=== PATIENT | female | born 1995 | race Caucasian/White ===

== ENCOUNTER 2016-11-24 11:08 | Emergency (ER) | payer OTHER ==
[2016-11-24] MEDS ORDERED: Sodium Chloride 0.9% 10 ML Syringe FLUSH PRN (11:16)
[2016-11-24 12:04] LABS: CHLORIDE,CL 109 mmol/L (101-111); SODIUM,NA 138 mmol/L (135-145)
--- NOTE | 2016-11-24 12:05 | EDM.PDOC ---
ED HPI GENERAL MEDICAL PROBLEM - General Chief Complaint: Abdominal Pain Stated Complaint: SHARP PAIN RIGHT SIDE 13 WEEKS PREG [id number] Time Seen by Provider: 11/24/16 11:40 Source of Information: Reports: Patient, RN, RN Notes Reviewed - History of Present Illness INITIAL COMMENTS - FREE TEXT/NARRATIVE: Pt presents to the ER with c/o RLQ pain. She states the pain began about 1/2 hour prior to arrival. She denies fever, chills, chest pain, sob, diarrhea, or constipation. She states she has chronic nausea and vomiting as she is approximately 11 weeks 6 days . She describes the pain as sharp, and that it has let up since it first began. Onset: Today, Sudden Location: Reports: Abdomen Quality: Reports: Sharp, Stabbing Severity: Moderate Improves with: Reports: None Worsens with: Reports: None Associated Symptoms: Reports: No Other Symptoms Right Lower Abdomen Pain Score (Numeric/FACES): 8 - Related Data Allergies Allergy/AdvReac Type Severity Reaction Status Date / Time No Known Allergies Allergy Verified 11/24/16 11:44 Home Meds: Home Meds Ondansetron [Zofran] 11/24/16 [History] ED ROS GENERAL - Review of Systems Review Of Systems: ROS reveals no pertinent complaints other than HPI. ED EXAM, GI/ABD - Physical Exam Exam: See Below Exam Limited By: No Limitations General Appearance: Alert, WD/WN, No Apparent Distress Ears: Normal External Exam, Hearing Grossly Normal Nose: Normal Inspection Throat/Mouth: Normal Inspection, Normal Voice, No Airway Compromise Head: Atraumatic, Normocephalic Neck: Normal Inspection, Supple, Non-Tender, Full Range of Motion Respiratory/Chest: No Respiratory Distress, Lungs Clear, Normal Breath Sounds, No Accessory Muscle Use, Chest Non-Tender Cardiovascular: Normal Peripheral Pulses, Regular Rate, Rhythm, No Edema, No Gallop, No JVD, No Murmur, No Rub GI/Abdominal Exam: Normal Bowel Sounds, Soft, Tender (RLQ, LLQ) (Female) Exam: Deferred Rectal (Female) Exam: Deferred Back Exam: Normal Inspection, Full Range of Motion Extremities: Normal Inspection, Normal Range of Motion, Non-Tender, No Pedal Edema, Normal Capillary Refill Neurological: Alert, Oriented, Normal Cognition, Normal Gait, No Motor/Sensory Deficits Psychiatric: Normal Affect, Normal Mood Skin Exam: Warm, Dry, Intact, Normal Color, No Rash Lymphatic: No Adenopathy Course - Vital Signs Last Recorded V/S: Last Vital Signs Temp 97 F 11/24/16 13:40 Pulse 77 11/24/16 13:40 Resp 16 11/24/16 13:40 BP 114/56 L 11/24/16 13:40 Pulse Ox 100 11/24/16 13:40 - Orders/Labs/Meds Orders: Active Orders 24 hr Category Date Time Status Peripheral IV Care [RC] . DIRECTED Care 11/24/16 11:16 Active Sodium Chloride 0.9% [Saline Flush] Med 11/24/16 11:16 Active 10 ml FLUSH ASDIRECTED PRN Peripheral IV Insertion Adult [OM.PC] Stat Oth 11/24/16 11:15 Ordered Medication Orders Sodium Chloride (Saline Flush) 10 ml FLUSH ASDIRECTED PRN PRN Reason: Keep Vein Open Labs: Laboratory Tests 11/24/16 11/24/16 11/24/16 Range/Units 11:30 11:30 11:30 WBC 8.9 (5.0-10.0) 10^3/uL RBC 4.61 (4.2-5.4) 10^6/uL Hgb 13.5 (12.0-16.0) g/dL Hct 39.2 (37.0-47.0) % MCV 85.0 (80-100) fL MCH 29.3 (27.0-34.0) pg MCHC 34.4 (33.0-35.0) g/dL Plt Count 285 (150-450) 10^3/uL Neut % (Auto) 68.1 (42.2-75.2) % Lymph % (Auto) 23.6 (20.5-50.1) % Atkinson % (Auto) 6.9 (2-8) % Eos % (Auto) 1.2 (1.0-3.0) % Baso % (Auto) 0.2 (0.0-1.0) % Sodium 138 (135-145) mmol/L Potassium 3.3 L (3.6-5.0) mmol/L Chloride 109 (101-111) mmol/L Carbon Dioxide 21.0 (21.0-31.0) mmol/L Anion Gap 11.3 BUN 6 L (7-18) mg/dL Creatinine 0.6 (0.6-1.3) mg/dL Est Cr Clr Drug Dosing TNP Estimated GFR (MDRD) > 60 BUN/Creatinine Ratio 10.00 Glucose 69 L (74-105) mg/dL Calcium 9.3 (8.4-10.2) mg/dl Total Bilirubin 0.3 (0.2-1.0) mg/dL AST 19 (10-42) IU/L ALT 11 (10-60) IU/L Alkaline Phosphatase 48 (42-121) IU/L Total Protein 6.7 (6.7-8.2) g/dl Albumin 3.6 (3.2-5.5) g/dl Globulin 3.1 Albumin/Globulin Ratio 1.16 Amylase 74 (28-100) U/L Lipase 27 (22-51) U/L HCG, Quant > 1371 H (0-25) mIU/ml Beta HCG, Quant 602488 mIU/ml Urine Color (YELLOW) Urine Appearance (CLEAR) Urine pH (5.0-9.0) Ur Specific Emerson (1.005-1.030) Urine Protein (NEGATIVE) Urine Glucose (UA) (NEGATIVE) Urine Ketones (NEGATIVE) Urine Occult Blood (NEGATIVE) Urine Nitrite (NEGATIVE) Urine Bilirubin (NEGATIVE) Urine Urobilinogen (0.2-1.0) mg/dL Ur Leukocyte Esterase (NEGATIVE) Urine RBC /HPF Urine WBC (0-5/HPF) /HPF Ur Epithelial Cells /HPF Urine Bacteria (0-FEW/HPF) /HPF Urine Opiates Screen (NEGATIVE) Ur Oxycodone Screen (NEGATIVE) Urine Methadone Screen (NEGATIVE) Ur Barbiturates Screen (NEGATIVE) U Tricyclic Antidepress (NEGATIVE) Ur Phencyclidine Scrn (NEGATIVE) Ur Amphetamine Screen (NEGATIVE) U Methamphetamines Scrn (NEGATIVE) Urine MDMA Screen (NEGATIVE) U Benzodiazepines Scrn (NEGATIVE) Urine Cocaine Screen (NEGATIVE) U Marijuana (THC) Screen (NEGATIVE) 11/24/16 11/24/16 Range/Units 11:30 11:30 WBC (5.0-10.0) 10^3/uL RBC (4.2-5.4) 10^6/uL Hgb (12.0-16.0) g/dL Hct (37.0-47.0) % MCV (80-100) fL MCH (27.0-34.0) pg MCHC (33.0-35.0) g/dL Plt Count (150-450) 10^3/uL Neut % (Auto) (42.2-75.2) % Lymph % (Auto) (20.5-50.1) % Atkinson % (Auto) (2-8) % Eos % (Auto) (1.0-3.0) % Baso % (Auto) (0.0-1.0) % Sodium (135-145) mmol/L Potassium (3.6-5.0) mmol/L Chloride (101-111) mmol/L Carbon Dioxide (21.0-31.0) mmol/L Anion Gap BUN (7-18) mg/dL Creatinine (0.6-1.3) mg/dL Est Cr Clr Drug Dosing Estimated GFR (MDRD) BUN/Creatinine Ratio Glucose (74-105) mg/dL Calcium (8.4-10.2) mg/dl Total Bilirubin (0.2-1.0) mg/dL AST (10-42) IU/L ALT (10-60) IU/L Alkaline Phosphatase (42-121) IU/L Total Protein (6.7-8.2) g/dl Albumin (3.2-5.5) g/dl Globulin Albumin/Globulin Ratio Amylase (28-100) U/L Lipase (22-51) U/L HCG, Quant (0-25) mIU/ml Beta HCG, Quant mIU/ml Urine Color Yellow (YELLOW) Urine Appearance Clear (CLEAR) Urine pH 5.5 (5.0-9.0) Ur Specific Emerson 1.015 (1.005-1.030) Urine Protein Negative (NEGATIVE) Urine Glucose (UA) Negative (NEGATIVE) Urine Ketones 40 H (NEGATIVE) Urine Occult Blood Small H (NEGATIVE) Urine Nitrite Negative (NEGATIVE) Urine Bilirubin Negative (NEGATIVE) Urine Urobilinogen 0.2 (0.2-1.0) mg/dL Ur Leukocyte Esterase Small H (NEGATIVE) Urine RBC 0-5 /HPF Urine WBC 0-5 (0-5/HPF) /HPF Ur Epithelial Cells Moderate H /HPF Urine Bacteria Few (0-FEW/HPF) /HPF Urine Opiates Screen Negative (NEGATIVE) Ur Oxycodone Screen Negative (NEGATIVE) Urine Methadone Screen Negative (NEGATIVE) Ur Barbiturates Screen Negative (NEGATIVE) U Tricyclic Antidepress Negative (NEGATIVE) Ur Phencyclidine Scrn Negative (NEGATIVE) Ur Amphetamine Screen Negative (NEGATIVE) U Methamphetamines Scrn Negative (NEGATIVE) Urine MDMA Screen Negative (NEGATIVE) U Benzodiazepines Scrn Negative (NEGATIVE) Urine Cocaine Screen Negative (NEGATIVE) U Marijuana (THC) Screen Negative (NEGATIVE) Meds: Medications Generic Name Dose Route Start Last Admin Trade Name Freq PRN Reason Stop Dose Admin Sodium Chloride 10 ml 11/24/16 11:16 Saline Flush FLUSH ASDIRECTED PRN Keep Vein Open - Radiology Interpretation Free Text/Narrative:: Ultrasound: Living intrauterine fetus, no acute findings See rad report - Re-Assessments/Exams Free Text/Narrative Re-Assessment/Exam: 11/24/16 12:05 Called Radiology regarding US at 1200. They state they will call back. 11/24/16 13:36 1208 Radiology called back. US will be done in about 30 minutes. Departure - Departure Time of Disposition: 15:04 Disposition: Home, Self-Care 01 Condition: Good Clinical Impression: Round ligament pain - Discharge Information Instructions: Abdominal Pain, Adult, [id number], Round Ligament Pain Forms: ED Department Discharge Additional Instructions: Follow up with Dr. Olivo as needed. - My Orders Last 24 Hours: My Active Orders 11/24/16 11:15 Peripheral IV Insertion Adult [OM.PC] Stat 11/24/16 11:16 Peripheral IV Care [RC] . DIRECTED Sodium Chloride 0.9% [Saline Flush] 10 ml FLUSH ASDIRECTED PRN - Assessment/Plan Last 24 Hours: My Active Orders 11/24/16 11:15 Peripheral IV Insertion Adult [OM.PC] Stat 11/24/16 11:16 Peripheral IV Care [RC] . DIRECTED Sodium Chloride 0.9% [Saline Flush] 10 ml FLUSH ASDIRECTED PRN
[2016-11-24] MEDS ORDERED: cefTRIAXone 1 GM in Sodium Chloride 0.9% 50 ML IV ONE (14:02)
== END 2016-11-24 15:22 | disposition home or self-care (01) ==
LOC: DL.ED 11:08
DX: O99.89 Other specified diseases and conditions complicating pregnancy, childbirth and the puerperium (principal); R10.2 Pelvic and perineal pain; Z3A.11 11 weeks gestation of pregnancy
CPT/HCPCS: 36415; 76815; 76817; 80053; 80305; 81001; 82150; 83690; 84702; 85025; 99284

== ENCOUNTER 2017-06-08 23:08 | Inpatient (IN) | payer OTHER ==
[2017-06-08] MEDS: Lactated Ringers 1,000 ML IV SCH (23:55)
[2017-06-09] MEDS ORDERED: fentaNYL 100 MCG/2 ML SDV IVPUSH ONE
[2017-06-09] MEDS ORDERED: Sodium Chloride 0.9% 10 ML Syringe FLUSH PRN ×2 (00:02→08:52)
[2017-06-09] MEDS ORDERED: Lactated Ringers 500 ML IV ONE (00:02)
[2017-06-09] MEDS ORDERED: Misoprostol 400 MCG (4 X 100 MCG TAB) RECTAL PRN (00:02)
[2017-06-09] MEDS ORDERED: Tranexamic Acid 1,000 MG in Sodium Chloride 0.9% 100 ML IV PRN (00:02)
[2017-06-09] MEDS ORDERED: Acetaminophen 325 MG Tab PO PRN (00:02)
[2017-06-09] MEDS ORDERED: Carboprost Tromethamine 250 MCG/1 ML Amp IM PRN (00:02)
[2017-06-09] MEDS ORDERED: Lidocaine 1% 30 ML SDV INJECT PRN (00:02)
[2017-06-09] MEDS ORDERED: Methylergonovine 0.2 MG/1 ML Amp IM PRN (00:02)
[2017-06-09] MEDS ORDERED: Oxytocin/Normal Saline 30 UNIT/500 ML BAG IV SCH (00:15)
--- NOTE | 2017-06-09 00:23 | PCM.LDHP ---
<Cori Lucas A - Last Filed: 06/09/17 00:18> L&D History of Present Illness - General Date of Service: 06/09/17 Admit Problem/Dx: Patient Status Order with Admit Dx/Problem 06/09/17 00:02 Patient Status [ADT] Routine Admission Diagnosis/Problem Admission Diagnosis/Problem Normal labor 06/09/17 00:18 Normal Labor Source of Information: Patient History Limitations: Reports: No Limitations - History of Present Illness Introduction:: Patient presents today for frequent painful contractions. They are occurring every 2-3 minutes and are very painful. She has had bloody show. NO loss of fluids or feeling like her water broke. No complications this . She is a at 40 weeks. NO headaches, vision changes, leg swelling. Baby is moving well. - Related Data Allergies/Adverse Reactions: Allergies Allergy/AdvReac Type Severity Reaction Status Date / Time No Known Allergies Allergy Verified 06/09/17 01:45 Home Medications: Home Meds Ondansetron [Zofran] 4 mg PO Q6H PRN 11/24/16 [History] Pnv No.122/Iron/Folic Acid [ Multi Tablet] 1 tab PO DAILY 03/03/17 [ History] Past Medical History HEENT History: Reports: None Cardiovascular History: Reports: None Respiratory History: Reports: None Gastrointestinal History: Reports: None Genitourinary History: Reports: None [employer] History: Reports: Polycystic Ovaries, : 1 Para: 0 Musculoskeletal History: Reports: None Neurological History: Reports: None Psychiatric History: Reports: Anxiety Endocrine/Metabolic History: Reports: None Hematologic History: Reports: Anemia Immunologic History: Reports: None Oncologic (Cancer) History: Reports: None Dermatologic History: Reports: Urticaria, Other (See Below) Other Dermatologic History: states breaks out in hives per uticaria if takes steroids PO - Infectious Disease History Infectious Disease History: Reports: Other (See Below) Other Infectious Disease History: STD - Past Surgical History Head Surgeries/Procedures: Reports: None HEENT Surgical History: Reports: Other (See Below) Other HEENT Surgeries/Procedures: wisdom teeth Female Surgical History: Reports: None Social & Family History - Family History Family Medical History: Noncontributory - Tobacco Use Smoking Status *Q: Never Smoker - Caffeine Use Caffeine Use: Reports: Soda - Recreational Drug Use Recreational Drug Use: No H&P Review of Systems - Review of Systems: Review Of Systems: See Below General: Reports: No Symptoms HEENT: Reports: No Symptoms Pulmonary: Reports: No Symptoms Cardiovascular: Reports: No Symptoms Gastrointestinal: Reports: Abdominal Pain Genitourinary: Reports: Other (bloody show) Musculoskeletal: Reports: No Symptoms Skin: Reports: No Symptoms Psychiatric: Reports: No Symptoms Neurological: Reports: No Symptoms Hematologic/Lymphatic: Reports: No Symptoms Immunologic: Reports: No Symptoms L&D Exam - Exam Exam: See Below - OB Specific Contraction Frequency (min): 2-3 minutes Contraction Intensity: Moderate Movement: Active Heart Tones: Present Heart Tones per Min: 145 (Accelerations present, variable and early decels present) Heart Rate (FHR) Variability: Moderate (6-25 bmp) Presentation: Vertex - Wallis Score Wallis Score Dilation: 3-4 cm - Exam General: Alert, Oriented, Severe Distress HEENT: Conjunctiva Clear, Hearing Intact, Mucosa Moist & [place], Nares Patent Lungs: Clear to Auscultation, Normal Respiratory Effort Cardiovascular: Regular Rate, Regular Rhythm GI/Abdominal Exam: Normal Bowel Sounds, Soft, Other () Genitourinary: Cervical dilitation (/-1) Extremities: Normal Inspection, Normal Range of Motion, Non-Tender, No Pedal Edema, Normal Capillary Refill Skin: Warm, Dry, Intact Psychiatric: Alert, Normal Affect, Normal Mood - Problem List (1) Normal labor SNOMED Code(s): 88945357 ICD Code: O80 - ENCOUNTER FOR FULL-TERM UNCOMPLICATED DELIVERY; Z37.9 - OUTCOME OF DELIVERY, UNSPECIFIED Status: Acute Current Visit: Yes Problem List Initiated/Reviewed/Updated: Yes Orders Last 24hrs: Active Orders 24 hr Category Date Time Status Patient Status [ADT] Routine ADT 06/09/17 00:02 Active Communication Order [RC] ASDIRECTED Care 06/09/17 00:02 Active Heart Tones [RC] PER UNIT ROUTINE Care 06/09/17 00:02 Active Notify Provider Vital Signs OB [RC] ASDIRECTED Care 06/09/17 00:02 Active Notify Provider [RC] PRN Care 06/09/17 00:02 Active Pump Management, Intrathecal [RC] ASDIRECTED Care 06/09/17 00:02 Active Up ad Ira [RC] ASDIRECTED Care 06/09/17 00:02 Active Vital Signs [RC] PER UNIT ROUTINE Care 06/09/17 00:02 Active Nothing Per Oral Diet [DIET] Diet 06/09/17 Breakfast Active CBC W/O DIFF,HEMOGRAM [HEME] Routine Lab 06/09/17 00:02 Ordered Acetaminophen [Tylenol] Med 06/09/17 00:02 Ordered 650 mg PO Q4H PRN Carboprost Tromethamine [Hemabate DS] Med 06/09/17 00:02 Ordered 250 mcg IM ASDIRECTED PRN Lactated Ringers [Ringers, Lactated] 1,000 ml Med 06/09/17 00:15 Ordered IV ASDIRECTED Lactated Ringers [Ringers, Lactated] 500 ml Med 06/09/17 00:02 Ordered IV .BOLUS Lidocaine 1% [Xylocaine-MPF 1%] Med 06/09/17 00:02 Ordered 10 ml INJECT ASDIRECTED PRN Methylergonovine [Methergine] Med 06/09/17 00:02 Ordered 0.2 mg IM ASDIRECTED PRN Misoprostol [Cytotec] Med 06/09/17 00:02 Ordered 800 mcg RECTAL ASDIRECTED PRN Ondansetron [Zofran] Med 06/09/17 00:02 Ordered 4 mg IV Q4H PRN Oxytocin/Normal Saline [Pitocin in NS 30 UNIT/500 ML] Med 06/09/17 00:15 Ordered 30 unit in 500 ml IV TITRATE Sodium Chloride 0.9% [Saline Flush] Med 06/09/17 00:02 Ordered 10 ml FLUSH ASDIRECTED PRN Tranexamic Acid [Cyklokapron] 1,000 mg Med 06/09/17 00:02 Ordered Sodium Chloride 0.9% [Normal Saline] 100 ml IV ONETIME Saline Lock Insert [OM.PC] Routine Oth 06/09/17 00:02 Ordered Resuscitation Status Routine Resus Stat 06/09/17 00:02 Ordered Medication Orders Acetaminophen (Tylenol) 650 mg PO Q4H PRN PRN Reason: Pain (Mild 1-3) and fever Carboprost Tromethamine (Hemabate Ds) 250 mcg IM ASDIRECTED PRN PRN Reason: HEMORRHAGE Lactated Ringer's (Ringers, Lactated) 500 mls @ 125 mls/hr IV .BOLUS ONE Stop: 06/09/17 04:01 Lactated Ringer's (Ringers, Lactated) 1,000 mls @ 125 mls/hr IV ASDIRECTED MAURISIO Oxytocin/Sodium Chloride (Pitocin In Ns 30 Unit/500 Ml) 30 unit in 500 mls @ 2 mls/hr IV TITRATE MAURISIO; Protocol Tranexamic Acid 1,000 mg/ (Sodium Chloride) 110 mls @ 660 mls/hr IV ONETIME PRN PRN Reason: Bleeding Lidocaine HCl (Xylocaine-Mpf 1%) 10 ml INJECT ASDIRECTED PRN PRN Reason: Perineal Repair Methylergonovine Maleate (Methergine) 0.2 mg IM ASDIRECTED PRN PRN Reason: Hemorrhage Misoprostol (Cytotec) 800 mcg RECTAL ASDIRECTED PRN PRN Reason: Hemorrhage Ondansetron HCl (Zofran) 4 mg IV Q4H PRN PRN Reason: Nausea/Vomiting Sodium Chloride (Saline Flush) 10 ml FLUSH ASDIRECTED PRN PRN Reason: Keep Vein Open Normal Labor: Admit to OB floor Continuous TOCO and EFM Routine intrapartum orders and labs Intrathecal for pain control AROM when able GBS negative Expectant management for Cori Lucas MD PGYIII <Margo Olivo - Last Filed: 06/09/17 16:27> L&D History of Present Illness - General Admit Problem/Dx: Patient Status Order with Admit Dx/Problem 06/09/17 00:02 Patient Status [ADT] Routine Admission Diagnosis/Problem Admission Diagnosis/Problem Normal labor L&D Exam - Vital Signs Vital Signs: Last Vital Signs Temp 36.7 C 06/09/17 08:40 Pulse 90 06/09/17 10:00 Resp 18 06/09/17 10:00 BP 120/54 L 06/09/17 10:00 Pulse Ox 98 06/09/17 05:20 - Patient Data Lab Results Last 24 hrs: Laboratory Results - last 24 hr 06/09/17 Range/Units 00:20 WBC 16.3 H (5.0-10.0) 10^3/uL RBC 3.65 L (4.2-5.4) 10^6/uL Hgb 10.9 L (12.0-16.0) g/dL Hct 32.4 L (37.0-47.0) % MCV 88.8 (80-100) fL MCH 29.9 (27.0-34.0) pg MCHC 33.6 (33.0-35.0) g/dL Plt Count 280 (150-450) 10^3/uL Result Diagrams: 06/09/17 00:20 Orders Last 24hrs: Active Orders 24 hr Category Date Time Status Patient Status [ADT] Routine ADT 06/09/17 00:02 Active Notify Provider Vital Signs OB [RC] ASDIRECTED Care 06/09/17 00:02 Active Up ad Ira [RC] ASDIRECTED Care 06/09/17 00:02 Active Vital Signs [RC] 08,20 Care 06/09/17 08:52 Active Regular Diet [DIET] Diet 06/09/17 Lunch Active CBC W/O DIFF,HEMOGRAM [HEME] Routine Lab 06/10/17 08:52 Ordered Acetaminophen [Tylenol] Med 06/09/17 00:02 Active 650 mg PO Q4H PRN Benzocaine/Menthol [Dermoplast Pain Relief [place]] Med 06/09/17 08:52 Active See Dose Instructions TOP Q4H PRN Carboprost Tromethamine [Hemabate DS] Med 06/09/17 00:02 Active 250 mcg IM ASDIRECTED PRN Docusate Sodium [Colace] Med 06/09/17 08:52 Active 100 mg PO BID PRN Ibuprofen [Motrin] Med 06/09/17 08:52 Active 800 mg PO Q8H PRN Methylergonovine [Methergine] Med 06/09/17 00:02 Active 0.2 mg IM ASDIRECTED PRN Misoprostol [Cytotec] Med 06/09/17 00:02 Active 800 mcg RECTAL ASDIRECTED PRN Oxytocin [Pitocin] Med 06/09/17 08:52 Active 10 unit IM ONETIME PRN Oxytocin/Normal Saline [Pitocin in NS 30 UNIT/500 ML] Med 06/09/17 00:15 Active 30 unit in 500 ml IV TITRATE Vit with Ca/FA/Iron [ Plus Iron] Med 06/09/17 09:00 Active 1 each PO DAILY Simethicone Med 06/09/17 08:52 Active 80 mg PO Q4H PRN Sodium Chloride 0.9% [Saline Flush] Med 06/09/17 00:02 Active 10 ml FLUSH ASDIRECTED PRN Sodium Chloride 0.9% [Saline Flush] Med 06/09/17 08:52 Active 10 ml FLUSH ASDIRECTED PRN Tranexamic Acid [Cyklokapron] 1,000 mg Med 06/09/17 00:02 Active Sodium Chloride 0.9% [Normal Saline] 100 ml IV ONETIME hydrOXYzine HCl [Atarax] Med 06/09/17 08:54 Active 25 mg PO Q8H PRN Assess Lochia [WOMSER] Per Unit Routine Ot 06/09/17 08:52 Ordered Assess Uterine Involution [WOMSER] Per Unit Routine Ot 06/09/17 08:52 Ordered Breast Pump [WOMSER] Per Unit Routine Ot 06/09/17 08:52 Ordered Ice Therapy [OM.PC] Per Unit Routine Ot 06/09/17 08:52 Ordered Perineal Care [OM.PC] Per Unit Routine Oth 06/09/17 08:52 Ordered Saline Lock Insert [OM.PC] Routine Ot 06/09/17 00:02 Ordered Saline Lock Insert [OM.PC] Urgent Oth 06/09/17 08:52 Ordered Sitz Bath [OM.PC] Per Unit Routine Ot 06/09/17 08:52 Ordered Resuscitation Status Routine Resus Stat 06/09/17 00:02 Ordered Medication Orders Acetaminophen (Tylenol) 650 mg PO Q4H PRN PRN Reason: Pain (Mild 1-3) and fever Benzocaine/Menthol (Dermoplast Pain Relief [place]) 0 gm TOP Q4H PRN PRN Reason: Perineal comfort measures Last Admin: 06/09/17 10:14 Dose: 1 spray Carboprost Tromethamine (Hemabate Ds) 250 mcg IM ASDIRECTED PRN PRN Reason: HEMORRHAGE Docusate Sodium (Colace) 100 mg PO BID PRN PRN Reason: Constipation Last Admin: 06/09/17 10:14 Dose: 100 mg Hydroxyzine HCl (Atarax) 25 mg PO Q8H PRN PRN Reason: Anxiety Last Admin: 06/09/17 10:14 Dose: 25 mg Oxytocin/Sodium Chloride (Pitocin In Ns 30 Unit/500 Ml) 30 unit in 500 mls @ 2 mls/hr IV TITRATE MAURISIO; Protocol Last Titration: 06/09/17 11:15 Dose: 0 munits/min, 0 mls/hr Titration: 06/09/17 10:05 Dose: 50 munits/min, 50 mls/hr Titration: 06/09/17 09:30 Dose: 125 munits/min, 125 mls/hr Titration: 06/09/17 08:50 Dose: 250 munits/min, 250 mls/hr Titration: 06/09/17 08:43 Dose: 500 munits/min, 500 mls/hr Titration: 06/09/17 08:34 Dose: 999 munits/min, 999 mls/hr Admin: 06/09/17 08:30 Dose: 500 munits/min, 500 mls/hr Tranexamic Acid 1,000 mg/ (Sodium Chloride) 110 mls @ 660 mls/hr IV ONETIME PRN PRN Reason: Bleeding Ibuprofen (Motrin) 800 mg PO Q8H PRN PRN Reason: Mild Pain or Fever Last Admin: 06/09/17 10:13 Dose: 800 mg Methylergonovine Maleate (Methergine) 0.2 mg IM ASDIRECTED PRN PRN Reason: Hemorrhage Misoprostol (Cytotec) 800 mcg RECTAL ASDIRECTED PRN PRN Reason: Hemorrhage Oxytocin (Pitocin) 10 unit IM ONETIME PRN PRN Reason: Bleeding Prenat Multivit/Ramer/Iron/Folic Ac ( Plus Iron) 1 each PO DAILY [facility] Last Admin: 06/09/17 15:21 Dose: Simethicone (Simethicone) 80 mg PO Q4H PRN PRN Reason: Gas Sodium Chloride (Saline Flush) 10 ml FLUSH ASDIRECTED PRN PRN Reason: Keep Vein Open Sodium Chloride (Saline Flush) 10 ml FLUSH ASDIRECTED PRN PRN Reason: Keep Vein Open Assessment/Plan Comment:: Agree with resident assessment and plan. Margo Olivo MD
[2017-06-09] MEDS: Lactated Ringers 1,000 ML IV SCH ×4 (00:30→05:00)
[2017-06-09] MEDS ORDERED: fentaNYL 100 MCG/2 ML SDV ONE ×2 (00:38→04:43)
[2017-06-09] MEDS ORDERED: Bupivacaine 0.75%/D5W 2 ML Amp ONE ×2 (00:38→04:43)
[2017-06-09] MEDS ORDERED: EPINEPHrine 1 MG/ML SDV ONE ×2 (00:38→04:43)
[2017-06-09] MEDS: ePHEDrine 50 MG/ML SDV ONE ×4 (01:00→05:04)
--- NOTE | 2017-06-09 01:03 | PCM.SN ---
- Free Text/Narrative Note: Intrathecal. Sitting position sterile prep and drape. 1 % lidocaine w bicarb for skinwheal to L3 L4 interspace. Introducer, 24 ga pencan x 1. Poc CSF, neg heme, neg parasthesia. 0.1 ml 1:1000 pf epi, 0.2 ml pf ns, 20 mcg pf sufenta, 30 mcg pf fentanyl and 6 mg of 0.75% pf bupivacaine injected after CSF aspiration. Pt to L lateral position. Procedure time 0035 to 0110
[2017-06-09] MEDS: Ondansetron 4 MG/2 ML SDV IV PRN ×2 (01:18→04:59)
--- NOTE | 2017-06-09 01:23 | PCM.PN ---
- General Info Date of Service: 06/09/17 Admission Dx/Problem (Free Text): Patient Status Order with Admit Dx/Problem 06/09/17 00:02 Patient Status [ADT] Routine Admission Diagnosis/Problem Admission Diagnosis/Problem Normal labor 06/09/17 00:18 Normal Labor Subjective Update: Patient is more comfortable with intrathecal. Is nauseous and vomiting - Patient Data Lab Results Last 24 Hours: Laboratory Results - last 24 hr 06/09/17 Range/Units 00:20 WBC 16.3 H (5.0-10.0) 10^3/uL RBC 3.65 L (4.2-5.4) 10^6/uL Hgb 10.9 L (12.0-16.0) g/dL Hct 32.4 L (37.0-47.0) % MCV 88.8 (80-100) fL MCH 29.9 (27.0-34.0) pg MCHC 33.6 (33.0-35.0) g/dL Plt Count 280 (150-450) 10^3/uL Med Orders - Current: Current Medications Acetaminophen (Tylenol) 650 mg PO Q4H PRN PRN Reason: Pain (Mild 1-3) and fever Carboprost Tromethamine (Hemabate Ds) 250 mcg IM ASDIRECTED PRN PRN Reason: HEMORRHAGE Lactated Ringer's (Ringers, Lactated) 500 mls @ 125 mls/hr IV .BOLUS ONE Stop: 06/09/17 04:01 Lactated Ringer's (Ringers, Lactated) 1,000 mls @ 125 mls/hr IV ASDIRECTED MAURISIO Last Admin: 06/08/17 23:55 Dose: 125 mls/hr Oxytocin/Sodium Chloride (Pitocin In Ns 30 Unit/500 Ml) 30 unit in 500 mls @ 2 mls/hr IV TITRATE MAURISIO; Protocol Tranexamic Acid 1,000 mg/ (Sodium Chloride) 110 mls @ 660 mls/hr IV ONETIME PRN PRN Reason: Bleeding Lidocaine HCl (Xylocaine-Mpf 1%) 10 ml INJECT ASDIRECTED PRN PRN Reason: Perineal Repair Methylergonovine Maleate (Methergine) 0.2 mg IM ASDIRECTED PRN PRN Reason: Hemorrhage Misoprostol (Cytotec) 800 mcg RECTAL ASDIRECTED PRN PRN Reason: Hemorrhage Ondansetron HCl (Zofran) 4 mg IV Q4H PRN PRN Reason: Nausea/Vomiting Sodium Chloride (Saline Flush) 10 ml FLUSH ASDIRECTED PRN PRN Reason: Keep Vein Open Discontinued Medications Bupivacaine HCl/Dextrose (Marcaine 0.75% Spinal) Confirm Administered Dose 2 ml .ROUTE .STK-MED ONE Stop: 06/09/17 00:39 Ephedrine Sulfate (Ephedrine Sulfate) Confirm Administered Dose 50 mg .ROUTE .STK-MED ONE Stop: 06/09/17 00:57 Last Admin: 06/09/17 01:06 Dose: 5 mg Epinephrine HCl (Adrenalin) Confirm Administered Dose 1 mg .ROUTE .STK-MED ONE Stop: 06/09/17 00:39 Fentanyl (Sublimaze) 25 mcg IVPUSH ONETIME ONE Stop: 06/09/17 00:01 Fentanyl (Sublimaze) Confirm Administered Dose 100 mcg .ROUTE .STK-MED ONE Stop: 06/09/17 00:39 Sodium Bicarbonate (Sodium Bicarbonate 4.2%) Confirm Administered Dose 5 meq .ROUTE .STK-MED ONE Stop: 06/09/17 00:40 Sufentanil Citrate (Sufenta) Confirm Administered Dose 50 mcg .ROUTE .STK-MED ONE Stop: 06/09/17 00:39 - Exam (Female) Exam: Cervical Dilatation (5/100/-1; AROMed for moderate clear fluid ) Physical Findings Comments:: FHT: 130, moderate variability, accelerations present, variable and early decels TOCO: COntractions ever 2-3 minutes - Problem List & Annotations (1) Normal labor SNOMED Code(s): 41155439 Code(s): O80 - ENCOUNTER FOR FULL-TERM UNCOMPLICATED DELIVERY; Z37.9 - OUTCOME OF DELIVERY, UNSPECIFIED Status: Acute Current Visit: Yes - Problem List Review Problem List Initiated/Reviewed/Updated: Yes - My Orders Last 24 Hours: My Active Orders 06/09/17 00:02 Patient Status [ADT] Routine Communication Order [RC] ASDIRECTED Heart Tones [RC] PER UNIT ROUTINE Notify Provider Vital Signs OB [RC] ASDIRECTED Notify Provider [RC] PRN Pump Management, Intrathecal [RC] ASDIRECTED Up ad Ira [RC] ASDIRECTED Vital Signs [RC] PER UNIT ROUTINE Acetaminophen [Tylenol] 650 mg PO Q4H PRN Carboprost Tromethamine [Hemabate DS] 250 mcg IM ASDIRECTED PRN Lactated Ringers [Ringers, Lactated] 500 ml IV .BOLUS Lidocaine 1% [Xylocaine-MPF 1%] 10 ml INJECT ASDIRECTED PRN Methylergonovine [Methergine] 0.2 mg IM ASDIRECTED PRN Misoprostol [Cytotec] 800 mcg RECTAL ASDIRECTED PRN Ondansetron [Zofran] 4 mg IV Q4H PRN Sodium Chloride 0.9% [Saline Flush] 10 ml FLUSH ASDIRECTED PRN Tranexamic Acid [Cyklokapron] 1,000 mg Sodium Chloride 0.9% [Normal Saline] 100 ml IV ONETIME Saline Lock Insert [OM.PC] Routine Resuscitation Status Routine 06/09/17 00:15 Lactated Ringers [Ringers, Lactated] 1,000 ml IV ASDIRECTED Oxytocin/Normal Saline [Pitocin in NS 30 UNIT/500 ML] 30 unit in 500 ml IV TITRATE 06/09/17 Breakfast Nothing Per Oral Diet [DIET] - Assessment Assessment:: Normal Labor - Plan Plan:: Zofran for nausea Expectant management for
--- NOTE | 2017-06-09 05:05 | PCM.SN ---
- Free Text/Narrative Note: Intrathecal. Sitting position sterile prep and drape. 1 % lidocaine w bicarb for skinwheal to L3 L4 interspace. Introducer, 24 ga pencan x 1. Pos CSF, neg heme, neg parasthesia. 0.1 ml 1:1000 pf epi, 0.2 ml pf ns, 20 mcg pf sufenta, 30 mcg pf fentanyl and 6 mg of 0.75% pf bupivacaine injected after CSF aspiration. Pt to L lateral position. Procedure time 0435 to 0508
--- NOTE | 2017-06-09 07:29 | PCM.PN ---
- General Info Date of Service: 06/09/17 Admission Dx/Problem (Free Text): Patient Status Order with Admit Dx/Problem 06/09/17 00:02 Patient Status [ADT] Routine Admission Diagnosis/Problem Admission Diagnosis/Problem Normal labor 06/09/17 00:18 Normal Labor Subjective Update: Patient more comfortable with intrathecal. She continues to vomit. - Patient Data Vitals - Most Recent: Last Vital Signs Temp 36.2 C 06/09/17 06:25 Pulse 71 06/09/17 06:55 Resp 18 06/09/17 06:55 BP 87/39 L 06/09/17 06:55 Pulse Ox 98 06/09/17 05:20 Weight - Most Recent: 95.254 kg I&O - Last 24 Hours: Intake & Output 06/08/17 06/09/17 06/09/17 22:59 06:59 14:59 Intake Total 4000 Output Total 200 Balance 3800 Lab Results Last 24 Hours: Laboratory Results - last 24 hr 06/09/17 Range/Units 00:20 WBC 16.3 H (5.0-10.0) 10^3/uL RBC 3.65 L (4.2-5.4) 10^6/uL Hgb 10.9 L (12.0-16.0) g/dL Hct 32.4 L (37.0-47.0) % MCV 88.8 (80-100) fL MCH 29.9 (27.0-34.0) pg MCHC 33.6 (33.0-35.0) g/dL Plt Count 280 (150-450) 10^3/uL Med Orders - Current: Current Medications Acetaminophen (Tylenol) 650 mg PO Q4H PRN PRN Reason: Pain (Mild 1-3) and fever Carboprost Tromethamine (Hemabate Ds) 250 mcg IM ASDIRECTED PRN PRN Reason: HEMORRHAGE Lactated Ringer's (Ringers, Lactated) 1,000 mls @ 125 mls/hr IV ASDIRECTED MAURISIO Last Admin: 06/09/17 05:00 Dose: 125 mls/hr Oxytocin/Sodium Chloride (Pitocin In Ns 30 Unit/500 Ml) 30 unit in 500 mls @ 2 mls/hr IV TITRATE MAURISIO; Protocol Tranexamic Acid 1,000 mg/ (Sodium Chloride) 110 mls @ 660 mls/hr IV ONETIME PRN PRN Reason: Bleeding Lidocaine HCl (Xylocaine-Mpf 1%) 10 ml INJECT ASDIRECTED PRN PRN Reason: Perineal Repair Methylergonovine Maleate (Methergine) 0.2 mg IM ASDIRECTED PRN PRN Reason: Hemorrhage Misoprostol (Cytotec) 800 mcg RECTAL ASDIRECTED PRN PRN Reason: Hemorrhage Ondansetron HCl (Zofran) 4 mg IV Q4H PRN PRN Reason: Nausea/Vomiting Last Admin: 06/09/17 04:59 Dose: 4 mg Sodium Chloride (Saline Flush) 10 ml FLUSH ASDIRECTED PRN PRN Reason: Keep Vein Open Discontinued Medications Bupivacaine HCl/Dextrose (Marcaine 0.75% Spinal) Confirm Administered Dose 2 ml .ROUTE .STK-MED ONE Stop: 06/09/17 00:39 Last Admin: 06/09/17 01:58 Dose: Not Given Bupivacaine HCl/Dextrose (Marcaine 0.75% Spinal) Confirm Administered Dose 2 ml .ROUTE .STK-MED ONE Stop: 06/09/17 04:44 Last Admin: 06/09/17 05:34 Dose: Not Given Ephedrine Sulfate (Ephedrine Sulfate) Confirm Administered Dose 50 mg .ROUTE .STK-MED ONE Stop: 06/09/17 00:57 Last Admin: 06/09/17 05:04 Dose: 10 mg Epinephrine HCl (Adrenalin) Confirm Administered Dose 1 mg .ROUTE .STK-MED ONE Stop: 06/09/17 00:39 Last Admin: 06/09/17 01:58 Dose: Not Given Epinephrine HCl (Adrenalin) Confirm Administered Dose 1 mg .ROUTE .STK-MED ONE Stop: 06/09/17 04:44 Last Admin: 06/09/17 05:34 Dose: Not Given Fentanyl (Sublimaze) 25 mcg IVPUSH ONETIME ONE Stop: 06/09/17 00:01 Last Admin: 06/09/17 04:38 Dose: Not Given Fentanyl (Sublimaze) Confirm Administered Dose 100 mcg .ROUTE .STK-MED ONE Stop: 06/09/17 00:39 Last Admin: 06/09/17 01:58 Dose: Not Given Fentanyl (Sublimaze) Confirm Administered Dose 100 mcg .ROUTE .STK-MED ONE Stop: 06/09/17 04:44 Last Admin: 06/09/17 05:34 Dose: Not Given Lactated Ringer's (Ringers, Lactated) 500 mls @ 125 mls/hr IV .BOLUS ONE Stop: 06/09/17 04:01 Last Admin: 06/09/17 04:39 Dose: Not Given Sodium Bicarbonate (Sodium Bicarbonate 4.2%) Confirm Administered Dose 5 meq .ROUTE .STK-MED ONE Stop: 06/09/17 00:40 Last Admin: 06/09/17 01:58 Dose: Not Given Sodium Bicarbonate (Sodium Bicarbonate 4.2%) Confirm Administered Dose 5 meq .ROUTE .STK-MED ONE Stop: 06/09/17 04:45 Last Admin: 06/09/17 05:35 Dose: Not Given Sufentanil Citrate (Sufenta) Confirm Administered Dose 50 mcg .ROUTE .STK-MED ONE Stop: 06/09/17 00:39 Last Admin: 06/09/17 01:58 Dose: Not Given Sufentanil Citrate (Sufenta) Confirm Administered Dose 50 mcg .ROUTE .STK-MED ONE Stop: 06/09/17 04:45 Last Admin: 06/09/17 05:35 Dose: Not Given - Exam (Female) Exam: Cervical Dilatation (complete, +1) Physical Findings Comments:: FHT: 130, moderate variability, accelerations present, no decels TOCO:Contractions every 2-3 minutes - Problem List & Annotations (1) Normal labor SNOMED Code(s): 48162418 Code(s): O80 - ENCOUNTER FOR FULL-TERM UNCOMPLICATED DELIVERY; Z37.9 - OUTCOME OF DELIVERY, UNSPECIFIED Status: Acute Current Visit: Yes - Problem List Review Problem List Initiated/Reviewed/Updated: Yes - My Orders Last 24 Hours: My Active Orders 06/09/17 00:02 Patient Status [ADT] Routine Communication Order [RC] ASDIRECTED Notify Provider Vital Signs OB [RC] ASDIRECTED Notify Provider [RC] PRN Up ad Ira [RC] ASDIRECTED Vital Signs [RC] PER UNIT ROUTINE Acetaminophen [Tylenol] 650 mg PO Q4H PRN Carboprost Tromethamine [Hemabate DS] 250 mcg IM ASDIRECTED PRN Lidocaine 1% [Xylocaine-MPF 1%] 10 ml INJECT ASDIRECTED PRN Methylergonovine [Methergine] 0.2 mg IM ASDIRECTED PRN Misoprostol [Cytotec] 800 mcg RECTAL ASDIRECTED PRN Ondansetron [Zofran] 4 mg IV Q4H PRN Sodium Chloride 0.9% [Saline Flush] 10 ml FLUSH ASDIRECTED PRN Tranexamic Acid [Cyklokapron] 1,000 mg Sodium Chloride 0.9% [Normal Saline] 100 ml IV ONETIME Saline Lock Insert [OM.PC] Routine Resuscitation Status Routine 06/09/17 00:15 Lactated Ringers [Ringers, Lactated] 1,000 ml IV ASDIRECTED Oxytocin/Normal Saline [Pitocin in NS 30 UNIT/500 ML] 30 unit in 500 ml IV TITRATE 06/09/17 Breakfast Nothing Per Oral Diet [DIET] - Assessment Assessment:: Normal Labor - Plan Plan:: Will start pushing soon Expectant management for
--- NOTE | 2017-06-09 08:51 | PCM.DEL ---
L & D Note - General Info Date of Service: 06/09/17 Mother's Due Date: 06/09/17 - Delivery Note Delivery Outcome: Livebirth Infant Delivery Method: Spontaneous Vaginal Delivery-Single Delivery Mode: Spontaneous Presentation: Left Occiput Anterior (YASMANI) Nuchal Cord: None Anesthesia Type: Intrathecal Amniotic Fluid Description: Meconium Stained Episiotomy Type: None Laceration: 1st Degree Placenta: Intact, Manual Removal Cord: 3 Vessels Estimated Blood Loss: 350 Resuscitation Needed: No : Stimulated Provider: Margo Olivo Score 1 min: 8 Score 5 min: 9 Post Delivery Events: Other (see below) (Cord avulsion occurred at base of placenta; placenta was then manually removed) Delivery Comments (Free Text/Narrative):: Patient was admitted to the OB floor for normal labor. She was AROMed and progressed to complete with intrathecal anesthesia. She pushed for a short period of time and delivered a viable female. 1rst degree perineal and bilateral periurethral repairs hemostatic and not repaired. Cord avulsion on base of placenta and placenta was manually removed. Some increased bleeding initially which resolved with bimanual massage. Bleeding controlled. - Patient Data Vitals - Most Recent: Last Vital Signs Temp 36.2 C 06/09/17 06:25 Pulse 71 06/09/17 06:55 Resp 18 06/09/17 06:55 BP 87/39 L 06/09/17 06:55 Pulse Ox 98 06/09/17 05:20 Weight - Most Recent: 95.254 kg I&O - Last 24 Hours: Intake & Output 06/08/17 06/09/17 06/09/17 22:59 06:59 14:59 Intake Total 4000 Output Total 200 Balance 3800 Lab Results Last 24 Hours: Laboratory Results - last 24 hr 06/09/17 Range/Units 00:20 WBC 16.3 H (5.0-10.0) 10^3/uL RBC 3.65 L (4.2-5.4) 10^6/uL Hgb 10.9 L (12.0-16.0) g/dL Hct 32.4 L (37.0-47.0) % MCV 88.8 (80-100) fL MCH 29.9 (27.0-34.0) pg MCHC 33.6 (33.0-35.0) g/dL Plt Count 280 (150-450) 10^3/uL Med Orders - Current: Current Medications Acetaminophen (Tylenol) 650 mg PO Q4H PRN PRN Reason: Pain (Mild 1-3) and fever Carboprost Tromethamine (Hemabate Ds) 250 mcg IM ASDIRECTED PRN PRN Reason: HEMORRHAGE Lactated Ringer's (Ringers, Lactated) 1,000 mls @ 125 mls/hr IV ASDIRECTED MAURISIO Last Admin: 06/09/17 05:00 Dose: 125 mls/hr Oxytocin/Sodium Chloride (Pitocin In Ns 30 Unit/500 Ml) 30 unit in 500 mls @ 2 mls/hr IV TITRATE MAURISIO; Protocol Last Titration: 06/09/17 08:43 Dose: 500 munits/min, 500 mls/hr Tranexamic Acid 1,000 mg/ (Sodium Chloride) 110 mls @ 660 mls/hr IV ONETIME PRN PRN Reason: Bleeding Lidocaine HCl (Xylocaine-Mpf 1%) 10 ml INJECT ASDIRECTED PRN PRN Reason: Perineal Repair Methylergonovine Maleate (Methergine) 0.2 mg IM ASDIRECTED PRN PRN Reason: Hemorrhage Misoprostol (Cytotec) 800 mcg RECTAL ASDIRECTED PRN PRN Reason: Hemorrhage Ondansetron HCl (Zofran) 4 mg IV Q4H PRN PRN Reason: Nausea/Vomiting Last Admin: 06/09/17 04:59 Dose: 4 mg Sodium Chloride (Saline Flush) 10 ml FLUSH ASDIRECTED PRN PRN Reason: Keep Vein Open Discontinued Medications Bupivacaine HCl/Dextrose (Marcaine 0.75% Spinal) Confirm Administered Dose 2 ml .ROUTE .STK-MED ONE Stop: 06/09/17 00:39 Last Admin: 06/09/17 01:58 Dose: Not Given Bupivacaine HCl/Dextrose (Marcaine 0.75% Spinal) Confirm Administered Dose 2 ml .ROUTE .STK-MED ONE Stop: 06/09/17 04:44 Last Admin: 06/09/17 05:34 Dose: Not Given Ephedrine Sulfate (Ephedrine Sulfate) Confirm Administered Dose 50 mg .ROUTE .STK-MED ONE Stop: 06/09/17 00:57 Last Admin: 06/09/17 05:04 Dose: 10 mg Epinephrine HCl (Adrenalin) Confirm Administered Dose 1 mg .ROUTE .STK-MED ONE Stop: 06/09/17 00:39 Last Admin: 06/09/17 01:58 Dose: Not Given Epinephrine HCl (Adrenalin) Confirm Administered Dose 1 mg .ROUTE .STK-MED ONE Stop: 06/09/17 04:44 Last Admin: 06/09/17 05:34 Dose: Not Given Fentanyl (Sublimaze) 25 mcg IVPUSH ONETIME ONE Stop: 06/09/17 00:01 Last Admin: 06/09/17 04:38 Dose: Not Given Fentanyl (Sublimaze) Confirm Administered Dose 100 mcg .ROUTE .STK-MED ONE Stop: 06/09/17 00:39 Last Admin: 06/09/17 01:58 Dose: Not Given Fentanyl (Sublimaze) Confirm Administered Dose 100 mcg .ROUTE .STK-MED ONE Stop: 06/09/17 04:44 Last Admin: 06/09/17 05:34 Dose: Not Given Lactated Ringer's (Ringers, Lactated) 500 mls @ 125 mls/hr IV .BOLUS ONE Stop: 06/09/17 04:01 Last Admin: 06/09/17 04:39 Dose: Not Given Sodium Bicarbonate (Sodium Bicarbonate 4.2%) Confirm Administered Dose 5 meq .ROUTE .STK-MED ONE Stop: 06/09/17 00:40 Last Admin: 06/09/17 01:58 Dose: Not Given Sodium Bicarbonate (Sodium Bicarbonate 4.2%) Confirm Administered Dose 5 meq .ROUTE .STK-MED ONE Stop: 06/09/17 04:45 Last Admin: 06/09/17 05:35 Dose: Not Given Sufentanil Citrate (Sufenta) Confirm Administered Dose 50 mcg .ROUTE .STK-MED ONE Stop: 06/09/17 00:39 Last Admin: 06/09/17 01:58 Dose: Not Given Sufentanil Citrate (Sufenta) Confirm Administered Dose 50 mcg .ROUTE .STK-MED ONE Stop: 06/09/17 04:45 Last Admin: 06/09/17 05:35 Dose: Not Given - Problem List & Annotations (1) Normal labor SNOMED Code(s): 51061690 Code(s): O80 - ENCOUNTER FOR FULL-TERM UNCOMPLICATED DELIVERY; Z37.9 - OUTCOME OF DELIVERY, UNSPECIFIED Status: Acute Current Visit: Yes (2) (normal spontaneous vaginal delivery) SNOMED Code(s): 30357537 Code(s): O80 - ENCOUNTER FOR FULL-TERM UNCOMPLICATED DELIVERY Status: Acute Current Visit: Yes Annotation/Comment:: Cord avulsion and manual placenta extraction - Problem List Review Problem List Initiated/Reviewed/Updated: Yes - My Orders Last 24 Hours: My Active Orders 06/09/17 00:02 Patient Status [ADT] Routine Communication Order [RC] ASDIRECTED Notify Provider Vital Signs OB [RC] ASDIRECTED Notify Provider [RC] PRN Up ad Ira [RC] ASDIRECTED Vital Signs [RC] PER UNIT ROUTINE Acetaminophen [Tylenol] 650 mg PO Q4H PRN Carboprost Tromethamine [Hemabate DS] 250 mcg IM ASDIRECTED PRN Lidocaine 1% [Xylocaine-MPF 1%] 10 ml INJECT ASDIRECTED PRN Methylergonovine [Methergine] 0.2 mg IM ASDIRECTED PRN Misoprostol [Cytotec] 800 mcg RECTAL ASDIRECTED PRN Ondansetron [Zofran] 4 mg IV Q4H PRN Sodium Chloride 0.9% [Saline Flush] 10 ml FLUSH ASDIRECTED PRN Tranexamic Acid [Cyklokapron] 1,000 mg Sodium Chloride 0.9% [Normal Saline] 100 ml IV ONETIME Saline Lock Insert [OM.PC] Routine Resuscitation Status Routine 06/09/17 00:15 Lactated Ringers [Ringers, Lactated] 1,000 ml IV ASDIRECTED Oxytocin/Normal Saline [Pitocin in NS 30 UNIT/500 ML] 30 unit in 500 ml IV TITRATE 06/09/17 Breakfast Nothing Per Oral Diet [DIET] - Assessment Assessment:: - Plan Plan:: Routine post orders
[2017-06-09] MEDS ORDERED: Simethicone 80 MG Tab.Chew PO PRN (08:52)
[2017-06-09] MEDS ORDERED: Oxytocin 10 Units/1 ML SDV IM PRN (08:52)
[2017-06-09] MEDS ORDERED: Benzocaine/Menthol 20%-0.5% Spray 56 GM Canister TOP PRN (08:52)
[2017-06-09] MEDS ORDERED: hydrOXYzine HCl 25 MG Tab PO PRN (08:54)
[2017-06-09] MEDS: Ibuprofen 800 MG Tab PO PRN (10:13)
[2017-06-09] MEDS: Docusate Sodium 100 MG Cap PO PRN (10:14)
[2017-06-09] MEDS ORDERED: ceFAZolin 2 GM in Premix Bag 1 BAG IV ONE (11:01)
[2017-06-09] MEDS: Prenatal Multivitamin with Calcium/Folic Acid/Iron Tab PO SCH (15:21)
[2017-06-10] MEDS: Ibuprofen 800 MG Tab PO PRN ×3 (01:16→20:17)
[2017-06-10] MEDS: Prenatal Multivitamin with Calcium/Folic Acid/Iron Tab PO SCH (09:27)
[2017-06-10] MEDS: Docusate Sodium 100 MG Cap PO PRN ×2 (09:27→20:17)
--- NOTE | 2017-06-10 10:30 | PCM.PNPP ---
- General Info Date of Service: 06/10/17 Subjective Update: 21-year-old, now , PPD#1 status post and manual extraction of placenta at 40w0d. She did receive 1 dose of IV Ancef after delivery. She is feeling well. She is tolerating a general diet. No fever or chills. No issues with ambulation. She is urinating without difficulty. She is passing gas but has not yet had a bowel movement. She is fairly well. She has needed to use a nipple shield to help with latch. No concerns per patient or per nursing. Functional Status: Reports: Pain Controlled, Tolerating Diet, Ambulating, Urinating. Denies: New Symptoms - Review of Systems General: Reports: No Symptoms Pulmonary: Reports: No Symptoms Cardiovascular: Reports: No Symptoms Gastrointestinal: Reports: No Symptoms Genitourinary: Reports: No Symptoms Skin: Reports: No Symptoms - General Info Date of Service: 06/10/17 - Patient Data Vital Signs - Most Recent: Last Vital Signs Temp 36.8 C 06/10/17 04:00 Pulse 88 06/10/17 04:00 Resp 20 06/09/17 20:00 BP 103/54 L 06/09/17 20:00 Pulse Ox 98 06/10/17 04:00 Weight - Most Recent: 95.254 kg Lab Results - Last 24 Hours: Laboratory Results - last 24 hr 06/10/17 Range/Units 06:00 WBC 19.9 H (5.0-10.0) 10^3/uL RBC 3.07 L (4.2-5.4) 10^6/uL Hgb 9.3 L D (12.0-16.0) g/dL Hct 27.8 L (37.0-47.0) % MCV 90.6 (80-100) fL MCH 30.3 (27.0-34.0) pg MCHC 33.5 (33.0-35.0) g/dL Plt Count 252 (150-450) 10^3/uL Med Orders - Current: Current Medications Acetaminophen (Tylenol) 650 mg PO Q4H PRN PRN Reason: Pain (Mild 1-3) and fever Benzocaine/Menthol (Dermoplast Pain Relief [place]) 0 gm TOP Q4H PRN PRN Reason: Perineal comfort measures Last Admin: 06/09/17 10:14 Dose: 1 spray Carboprost Tromethamine (Hemabate Ds) 250 mcg IM ASDIRECTED PRN PRN Reason: HEMORRHAGE Docusate Sodium (Colace) 100 mg PO BID PRN PRN Reason: Constipation Last Admin: 06/10/17 09:27 Dose: 100 mg Hydroxyzine HCl (Atarax) 25 mg PO Q8H PRN PRN Reason: Anxiety Last Admin: 06/09/17 10:14 Dose: 25 mg Oxytocin/Sodium Chloride (Pitocin In Ns 30 Unit/500 Ml) 30 unit in 500 mls @ 2 mls/hr IV TITRATE MAURISIO; Protocol Last Titration: 06/09/17 11:15 Dose: Infused Tranexamic Acid 1,000 mg/ (Sodium Chloride) 110 mls @ 660 mls/hr IV ONETIME PRN PRN Reason: Bleeding Ibuprofen (Motrin) 800 mg PO Q8H PRN PRN Reason: Mild Pain or Fever Last Admin: 06/10/17 09:27 Dose: 800 mg Methylergonovine Maleate (Methergine) 0.2 mg IM ASDIRECTED PRN PRN Reason: Hemorrhage Misoprostol (Cytotec) 800 mcg RECTAL ASDIRECTED PRN PRN Reason: Hemorrhage Oxytocin (Pitocin) 10 unit IM ONETIME PRN PRN Reason: Bleeding Prenat Multivit/[place]/Iron/Folic Ac ( Plus Iron) 1 each PO DAILY [facility] Last Admin: 06/10/17 09:27 Dose: 1 each Simethicone (Simethicone) 80 mg PO Q4H PRN PRN Reason: Gas Sodium Chloride (Saline Flush) 10 ml FLUSH ASDIRECTED PRN PRN Reason: Keep Vein Open Sodium Chloride (Saline Flush) 10 ml FLUSH ASDIRECTED PRN PRN Reason: Keep Vein Open Discontinued Medications Bupivacaine HCl/Dextrose (Marcaine 0.75% Spinal) Confirm Administered Dose 2 ml .ROUTE .STK-MED ONE Stop: 06/09/17 00:39 Last Admin: 06/09/17 01:58 Dose: Not Given Bupivacaine HCl/Dextrose (Marcaine 0.75% Spinal) Confirm Administered Dose 2 ml .ROUTE .STK-MED ONE Stop: 06/09/17 04:44 Last Admin: 06/09/17 05:34 Dose: Not Given Ephedrine Sulfate (Ephedrine Sulfate) Confirm Administered Dose 50 mg .ROUTE .STK-MED ONE Stop: 06/09/17 00:57 Last Admin: 06/09/17 05:04 Dose: 10 mg Epinephrine HCl (Adrenalin) Confirm Administered Dose 1 mg .ROUTE .STK-MED ONE Stop: 06/09/17 00:39 Last Admin: 06/09/17 01:58 Dose: Not Given Epinephrine HCl (Adrenalin) Confirm Administered Dose 1 mg .ROUTE .STK-MED ONE Stop: 06/09/17 04:44 Last Admin: 06/09/17 05:34 Dose: Not Given Fentanyl (Sublimaze) 25 mcg IVPUSH ONETIME ONE Stop: 06/09/17 00:01 Last Admin: 06/09/17 04:38 Dose: Not Given Fentanyl (Sublimaze) Confirm Administered Dose 100 mcg .ROUTE .STK-MED ONE Stop: 06/09/17 00:39 Last Admin: 06/09/17 01:58 Dose: Not Given Fentanyl (Sublimaze) Confirm Administered Dose 100 mcg .ROUTE .STK-MED ONE Stop: 06/09/17 04:44 Last Admin: 06/09/17 05:34 Dose: Not Given Lactated Ringer's (Ringers, Lactated) 500 mls @ 125 mls/hr IV .BOLUS ONE Stop: 06/09/17 23:59 Lactated Ringer's (Ringers, Lactated) 1,000 mls @ 125 mls/hr IV ASDIRECTED MAURISIO Last Admin: 06/09/17 05:00 Dose: 125 mls/hr Cefazolin Sodium/Dextrose 2 gm (/ Premix) 50 mls @ 100 mls/hr IV ONETIME ONE Stop: 06/09/17 11:30 Last Admin: 06/09/17 11:27 Dose: 100 mls/hr Lidocaine HCl (Xylocaine-Mpf 1%) 10 ml INJECT ASDIRECTED PRN PRN Reason: Perineal Repair Ondansetron HCl (Zofran) 4 mg IV Q4H PRN PRN Reason: Nausea/Vomiting Last Admin: 06/09/17 04:59 Dose: 4 mg Sodium Bicarbonate (Sodium Bicarbonate 4.2%) Confirm Administered Dose 5 meq .ROUTE .STK-MED ONE Stop: 06/09/17 00:40 Last Admin: 06/09/17 01:58 Dose: Not Given Sodium Bicarbonate (Sodium Bicarbonate 4.2%) Confirm Administered Dose 5 meq .ROUTE .STK-MED ONE Stop: 06/09/17 04:45 Last Admin: 06/09/17 05:35 Dose: Not Given Sufentanil Citrate (Sufenta) Confirm Administered Dose 50 mcg .ROUTE .STK-MED ONE Stop: 06/09/17 00:39 Last Admin: 06/09/17 01:58 Dose: Not Given Sufentanil Citrate (Sufenta) Confirm Administered Dose 50 mcg .ROUTE .STK-MED ONE Stop: 06/09/17 04:45 Last Admin: 06/09/17 05:35 Dose: Not Given - Infant Interaction Disposition, : [place] in Room with Family Infant Interaction: Holding Infant Feeding: Breastfed ; Nursed Well Support Person: Significant Other - Recovery Exam Fundal Tone: Firm Fundal Level: At Umbilicus Fundal Placement: Midline Lochia Amount: Small, Moderate Lochia Color: Rubra/Red Perineum Description: Intact, Minimal Bruising/Swelling Episiotomy/Laceration: None Bladder Status: Voiding - Exam General: Alert, Oriented HEENT: Pupils Equal, Mucous Membr. Moist/[place] Lungs: Clear to Auscultation, Normal Respiratory Effort Cardiovascular: Regular Rate, Regular Rhythm, No Murmurs Extremities: No Pedal Edema Skin: Warm, Dry, Intact - Problem List & Annotations (1) Perineal laceration during delivery SNOMED Code(s): 109015620 Code(s): O70.9 - PERINEAL LACERATION DURING DELIVERY, UNSPECIFIED Status: Acute Current Visit: Yes (2) (normal spontaneous vaginal delivery) SNOMED Code(s): 75553196 Code(s): O80 - ENCOUNTER FOR FULL-TERM UNCOMPLICATED DELIVERY Status: Acute Current Visit: Yes Annotation/Comment:: Cord avulsion and manual placenta extraction - Problem List Review Problem List Initiated/Reviewed/Updated: Yes - My Orders Last 24 Hours: My Active Orders 06/09/17 Lunch Regular Diet [DIET] 06/11/17 08:00 CBC WITH AUTO DIFF [HEME] Routine - Assessment Assessment:: 21-year-old status post and manual removal of placenta at 40w0d - Plan Plan:: 1. Continue routine cares 2. Will repeat CBC tomorrow as WBC was 19.9 today. 3. 4. Anticipate discharge 06/11/17. Margo Olivo MD
[2017-06-10] MEDS ORDERED: Sodium Chloride 0.9% 10 ML SDV ONE ×2 (13:44→13:49)
[2017-06-10] MEDS ORDERED: fentaNYL 100 MCG/2 ML SDV ITHECAL ONE ×2 (13:44→13:49)
[2017-06-10] MEDS ORDERED: EPINEPHrine 1 MG/ML SDV IV ONE (13:49)
[2017-06-10] MEDS ORDERED: Bupivacaine 0.75%/D5W 2 ML Amp ONE (13:49)
[2017-06-11] MEDS: Prenatal Multivitamin with Calcium/Folic Acid/Iron Tab PO SCH (08:57)
[2017-06-11] MEDS: Ibuprofen 800 MG Tab PO PRN (08:57)
[2017-06-11] MEDS: Docusate Sodium 100 MG Cap PO PRN (08:57)
--- NOTE | 2017-06-11 10:56 | PCM.DCSUM1 ---
Discharge Summary - Hospital Course Free Text/Narrative:: 21-year-old PPD#2 status post at 40w0d - Discharge Data Discharge Date: 06/11/17 Discharge Disposition: Home, Self-Care 01 Condition: Good - Discharge Diagnosis/Problem(s) (1) Perineal laceration during delivery SNOMED Code(s): 312688382 ICD Code: O70.9 - PERINEAL LACERATION DURING DELIVERY, UNSPECIFIED Status: Acute Current Visit: Yes (2) (normal spontaneous vaginal delivery) SNOMED Code(s): 50900826 ICD Code: O80 - ENCOUNTER FOR FULL-TERM UNCOMPLICATED DELIVERY Status: Acute Current Visit: Yes Problem Details: Cord avulsion and manual placenta extraction - Patient Summary/Data Operative Procedure(s) Performed: None Complications: Umbilical cord avulsion requiring manual removal of the placenta. Patient recieved 2 grams Ancef post delivery Consults: None Labs Pending at D/C: None Recommended Follow-up Testing/Procedures: None Planned Operative Procedure(s) after DC: None Hospital Course: Please see subjective section. - Patient Instructions Diet: Usual Diet as Tolerated Activity: Apply Ice, Non Weight Bearing Driving: May Drive Today Showering/Bathing: May Shower Notify Provider of: Fever, Increased Pain, Swelling and Redness, Drainage - Discharge Plan Home Medications: Home Meds Ondansetron [Zofran] 4 mg PO Q6H PRN 11/24/16 [History] Pnv No.122/Iron/Folic Acid [ Multi Tablet] 1 tab PO DAILY 03/03/17 [ History] Acetaminophen [Tylenol] 650 mg PO Q4H PRN tablet 06/11/17 [Rx] Docusate Sodium [Colace] 100 mg PO BID PRN cap 06/11/17 [Rx] Ibuprofen [IMW: Ibuprofen] 800 mg PO Q8H PRN tablet 06/11/17 [Rx] Referrals: Margo Olivo MD [Primary Care Provider] - (6-8 weeks for visit) - Discharge Summary/Plan Comment Discharge Summary/Plan Comment: Discharge home today with follow-up in 6-8 weeks for routine visit. Reasons to return to clinic or present to the ED were reviewed with the patient. All questions were answered. Margo Olivo MD - General Info Subjective Update: 21-year-old, now , PPD#2 status post and manual extraction of placenta at 40w0d. She did receive 1 dose of IV Ancef after delivery. She is feeling well. She is tolerating a general diet. No fever or chills. No issues with ambulation. She is urinating without difficulty. She is passing gas. She is well with use of a nipple shield. No concerns per patient or per nursing. Functional Status: Reports: Pain Controlled, Tolerating Diet, Ambulating, Urinating. Denies: New Symptoms - Review of Systems General: Reports: No Symptoms HEENT: Reports: No Symptoms Pulmonary: Reports: No Symptoms Cardiovascular: Reports: No Symptoms Gastrointestinal: Reports: No Symptoms Genitourinary: Reports: No Symptoms Musculoskeletal: Reports: No Symptoms - Patient Data Vitals - Most Recent: Last Vital Signs Temp 36.9 C 06/11/17 08:00 Pulse 89 06/11/17 08:00 Resp 16 06/11/17 08:00 BP 116/56 L 06/11/17 08:00 Pulse Ox 98 06/11/17 08:00 Weight - Most Recent: 95.254 kg Lab Results - Last 24 hrs: Laboratory Results - last 24 hr 06/11/17 Range/Units 06:22 WBC 16.8 H (5.0-10.0) 10^3/uL RBC 3.28 L (4.2-5.4) 10^6/uL Hgb 9.8 L (12.0-16.0) g/dL Hct 29.9 L (37.0-47.0) % MCV 91.2 (80-100) fL MCH 29.9 (27.0-34.0) pg MCHC 32.8 L (33.0-35.0) g/dL Plt Count 282 (150-450) 10^3/uL Neut % (Auto) 69.9 (42.2-75.2) % Lymph % (Auto) 22.3 (20.5-50.1) % [place] % (Auto) 5.9 (2-8) % Eos % (Auto) 1.7 (1.0-3.0) % Baso % (Auto) 0.2 (0.0-1.0) % Med Orders - Current: Current Medications Acetaminophen (Tylenol) 650 mg PO Q4H PRN PRN Reason: Pain (Mild 1-3) and fever Last Admin: 06/10/17 16:45 Dose: 650 mg Benzocaine/Menthol (Dermoplast Pain Relief [place]) 0 gm TOP Q4H PRN PRN Reason: Perineal comfort measures Last Admin: 06/09/17 10:14 Dose: 1 spray Carboprost Tromethamine (Hemabate Ds) 250 mcg IM ASDIRECTED PRN PRN Reason: HEMORRHAGE Docusate Sodium (Colace) 100 mg PO BID PRN PRN Reason: Constipation Last Admin: 06/11/17 08:57 Dose: 100 mg Hydroxyzine HCl (Atarax) 25 mg PO Q8H PRN PRN Reason: Anxiety Last Admin: 06/09/17 10:14 Dose: 25 mg Oxytocin/Sodium Chloride (Pitocin In Ns 30 Unit/500 Ml) 30 unit in 500 mls @ 2 mls/hr IV TITRATE MAURISIO; Protocol Last Titration: 06/09/17 11:15 Dose: Infused Tranexamic Acid 1,000 mg/ (Sodium Chloride) 110 mls @ 660 mls/hr IV ONETIME PRN PRN Reason: Bleeding Ibuprofen (Motrin) 800 mg PO Q8H PRN PRN Reason: Mild Pain or Fever Last Admin: 06/11/17 08:57 Dose: 800 mg Methylergonovine Maleate (Methergine) 0.2 mg IM ASDIRECTED PRN PRN Reason: Hemorrhage Misoprostol (Cytotec) 800 mcg RECTAL ASDIRECTED PRN PRN Reason: Hemorrhage Oxytocin (Pitocin) 10 unit IM ONETIME PRN PRN Reason: Bleeding Prenat Multivit/[place]/Iron/Folic Ac ( Plus Iron) 1 each PO DAILY MAURISIO Last Admin: 06/11/17 08:57 Dose: 1 each Simethicone (Simethicone) 80 mg PO Q4H PRN PRN Reason: Gas Sodium Chloride (Saline Flush) 10 ml FLUSH ASDIRECTED PRN PRN Reason: Keep Vein Open Sodium Chloride (Saline Flush) 10 ml FLUSH ASDIRECTED PRN PRN Reason: Keep Vein Open Discontinued Medications Bupivacaine HCl/Dextrose (Marcaine 0.75% Spinal) Confirm Administered Dose 2 ml .ROUTE .K-MED ONE Stop: 06/09/17 00:39 Last Admin: 06/09/17 01:58 Dose: Not Given Bupivacaine HCl/Dextrose (Marcaine 0.75% Spinal) Confirm Administered Dose 2 ml .ROUTE .STK-MED ONE Stop: 06/09/17 04:44 Last Admin: 06/09/17 05:34 Dose: Not Given Bupivacaine HCl/Dextrose (Marcaine 0.75% Spinal) 0.8 ml .XX .STK-MED ONE Stop: 06/10/17 13:50 Ephedrine Sulfate (Ephedrine Sulfate) Confirm Administered Dose 50 mg .ROUTE .STK-MED ONE Stop: 06/09/17 00:57 Last Admin: 06/09/17 05:04 Dose: 10 mg Epinephrine HCl (Adrenalin) Confirm Administered Dose 1 mg .ROUTE .STK-MED ONE Stop: 06/09/17 00:39 Last Admin: 06/09/17 01:58 Dose: Not Given Epinephrine HCl (Adrenalin) Confirm Administered Dose 1 mg .ROUTE .STK-MED ONE Stop: 06/09/17 04:44 Last Admin: 06/09/17 05:34 Dose: Not Given Epinephrine HCl (Adrenalin) 0.1 mg IV .STK-MED ONE Stop: 06/10/17 13:50 Fentanyl (Sublimaze) 25 mcg IVPUSH ONETIME ONE Stop: 06/09/17 00:01 Last Admin: 06/09/17 04:38 Dose: Not Given Fentanyl (Sublimaze) Confirm Administered Dose 100 mcg .ROUTE .STK-MED ONE Stop: 06/09/17 00:39 Last Admin: 06/09/17 01:58 Dose: Not Given Fentanyl (Sublimaze) Confirm Administered Dose 100 mcg .ROUTE .STK-MED ONE Stop: 06/09/17 04:44 Last Admin: 06/09/17 05:34 Dose: Not Given Fentanyl (Sublimaze) 30 mcg ITHECAL .STK-MED ONE Stop: 06/10/17 13:45 Fentanyl (Sublimaze) 30 mcg ITHECAL .STK-MED ONE Stop: 06/10/17 13:50 Lactated Ringer's (Ringers, Lactated) 500 mls @ 125 mls/hr IV .BOLUS ONE Stop: 06/09/17 23:59 Lactated Ringer's (Ringers, Lactated) 1,000 mls @ 125 mls/hr IV ASDIRECTED MAURISIO Last Admin: 06/09/17 05:00 Dose: 125 mls/hr Cefazolin Sodium/Dextrose 2 gm (/ Premix) 50 mls @ 100 mls/hr IV ONETIME ONE Stop: 06/09/17 11:30 Last Admin: 06/09/17 11:27 Dose: 100 mls/hr Lidocaine HCl (Xylocaine-Mpf 1%) 10 ml INJECT ASDIRECTED PRN PRN Reason: Perineal Repair Lidocaine HCl (Xylocaine-Mpf 1%) 3 ml .XX .STK-MED ONE Stop: 06/10/17 13:50 Ondansetron HCl (Zofran) 4 mg IV Q4H PRN PRN Reason: Nausea/Vomiting Last Admin: 06/09/17 04:59 Dose: 4 mg Sodium Bicarbonate (Sodium Bicarbonate 4.2%) Confirm Administered Dose 5 meq .ROUTE .STK-MED ONE Stop: 06/09/17 00:40 Last Admin: 06/09/17 01:58 Dose: Not Given Sodium Bicarbonate (Sodium Bicarbonate 4.2%) Confirm Administered Dose 5 meq .ROUTE .STK-MED ONE Stop: 06/09/17 04:45 Last Admin: 06/09/17 05:35 Dose: Not Given Sodium Bicarbonate (Sodium Bicarbonate 4.2%) 0.5 meq IV .STK-MED ONE Stop: 06/10/17 13:45 Sodium Bicarbonate (Sodium Bicarbonate 4.2%) 0.5 meq .XX .STK-MED ONE Stop: 06/10/17 13:50 Sodium Chloride (Normal Saline) 0.1 ml .XX .STK-MED ONE Stop: 06/10/17 13:45 Sodium Chloride (Normal Saline) 0.1 ml .XX .STK-MED ONE Stop: 06/10/17 13:50 Sufentanil Citrate (Sufenta) Confirm Administered Dose 50 mcg .ROUTE .STK-MED ONE Stop: 06/09/17 00:39 Last Admin: 06/09/17 01:58 Dose: Not Given Sufentanil Citrate (Sufenta) Confirm Administered Dose 50 mcg .ROUTE .STK-MED ONE Stop: 06/09/17 04:45 Last Admin: 06/09/17 05:35 Dose: Not Given Sufentanil Citrate (Sufenta) 20 mcg ITHECAL .STK-MED ONE Stop: 06/10/17 13:45 Sufentanil Citrate (Sufenta) 20 mcg ITHECAL .STK-MED ONE Stop: 06/10/17 13:50 - Exam General: Reports: Alert, Oriented HEENT: Reports: Pupils Equal, Mucous Membr. Moist/[place] Lungs: Reports: Clear to Auscultation, Normal Respiratory Effort Cardiovascular: Reports: Regular Rate, Regular Rhythm, No Murmurs GI/Abdominal Exam: Soft, Non-Tender Extremities: No Pedal Edema Skin: Reports: Warm, Dry, Intact
== END 2017-06-11 12:00 | disposition home or self-care (01) | DRG 767 ==
LOC: DL.OBCHECK 23:08 → DL.OB 23:43 → OBSVTOIN 06-09 08:27
PROVIDERS: ADMIT Family Medicine; ATTEND Family Medicine
PROC: 10E0XZZ Delivery of Products of Conception, External Approach (ICD-10-PCS; principal; 2017-06-09)
PROC: 10D17Z9 Manual Extraction of Products of Conception, Retained, Via Natural or Artificial Opening (ICD-10-PCS; 2017-06-09)
PROC: 10907ZC Drainage of Amniotic Fluid, Therapeutic from Products of Conception, Via Natural or Artificial Opening (ICD-10-PCS; 2017-06-09)
PROC: 00HU33Z Insertion of Infusion Device into Spinal Canal, Percutaneous Approach (ICD-10-PCS; 2017-06-09)
PROC: 3E0R3BZ Introduction of Anesthetic Agent into Spinal Canal, Percutaneous Approach (ICD-10-PCS; 2017-06-09)
DX: O77.0 Labor and delivery complicated by meconium in amniotic fluid (principal); Z37.0 Single live birth; Z3A.40 40 weeks gestation of pregnancy; O70.0 First degree perineal laceration during delivery; O69.89X0 Labor and delivery complicated by other cord complications, not applicable or unspecified; O75.89 Other specified complications of labor and delivery; R11.2 Nausea with vomiting, unspecified; O43.893 Other placental disorders, third trimester
CPT/HCPCS: 36415; 59409; 85025; 85027; A9270-GY; J0171; J0690; J2405; J2590; J3010; J7120

== ENCOUNTER 2017-08-20 23:10 | Emergency (ER) | payer OTHER ==
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
[2017-08-20] MEDS ORDERED: Ondansetron 4 MG/2 ML SDV IV ONE (23:28)
[2017-08-20] MEDS ORDERED: Morphine 2 MG/ML Syringe IVPUSH ONE (23:28)
[2017-08-20 23:55] LABS: ANION GAP 9.3; CHLORIDE,CL 107 mmol/L (101-111); SODIUM,NA 138 mmol/L (135-145)
== END 2017-08-21 00:25 ==
LOC: DL.ED 23:10
DX: S06.0X0A Concussion without loss of consciousness, initial encounter (principal); V49.9XXA Car occupant (driver) (passenger) injured in unspecified traffic accident, initial encounter
CPT/HCPCS: 36415; 80053; 84703; 85025; 99285; G0480; J2270; J2405

== ENCOUNTER 2019-08-17 00:14 | Inpatient (IN) | payer BC ==
[2019-08-17] MEDS ORDERED: Carboprost Tromethamine 250 MCG/1 ML Amp IM PRN ×2 (00:24→08:00)
[2019-08-17] MEDS ORDERED: Sodium Chloride 0.9% 10 ML Syringe FLUSH PRN ×3 (00:24→11:01)
[2019-08-17] MEDS ORDERED: Ondansetron 4 MG/2 ML SDV IVPUSH PRN ×2 (00:24→08:00)
[2019-08-17] MEDS ORDERED: Oxytocin/Normal Saline 30 UNIT/500 ML BAG IV SCH ×2 (00:24→08:00)
[2019-08-17] MEDS ORDERED: Lactated Ringers 1,000 ML IV SCH ×2 (00:24→08:00)
[2019-08-17] MEDS ORDERED: Tranexamic Acid 1,000 MG in Sodium Chloride 0.9% 100 ML IV PRN ×2 (00:24→08:00)
[2019-08-17] MEDS ORDERED: Acetaminophen 325 MG Tab PO PRN ×4 (00:24→08:00)
[2019-08-17] MEDS ORDERED: Oxytocin/0.9 % Sodium Chloride 30 UNIT/500 ML BAG IV SCH ×2 (00:24→08:00)
[2019-08-17] MEDS ORDERED: Methylergonovine 0.2 MG/1 ML Amp IM PRN ×2 (00:24→08:00)
[2019-08-17] MEDS ORDERED: Lidocaine 1% 30 ML SDV INJECT PRN ×2 (00:24→08:00)
[2019-08-17] MEDS ORDERED: Misoprostol 400 MCG (4 X 100 MCG TAB) RECTAL PRN ×2 (00:24→08:00)
[2019-08-17] MEDS ORDERED: Lactated Ringers 1,000 ML IV ONE ×2 (00:24→08:00)
[2019-08-17] MEDS ORDERED: fentaNYL 100 MCG/2 ML SDV IVPUSH PRN ×2 (00:24→08:00)
[2019-08-17] MEDS ORDERED: fentaNYL 100 MCG/2 ML SDV ONE (08:33)
[2019-08-17] MEDS ORDERED: Sodium Bicarbonate 4.2% 2.5 MEQ/5 ML SDV ONE ×2 (08:33→14:30)
[2019-08-17] MEDS ORDERED: EPINEPHrine 1 MG/1 ML Amp ONE ×2 (08:33→14:30)
--- NOTE | 2019-08-17 08:59 | PCM.SN.2 ---
- Free Text/Narrative Note: Intrathecal. Sitting position, sterile prep and drape, 1% lidocaine w bicarb for skinwheal to L2 L3 . Introducer x 1, Pos CSF, neg heme, neg parasthesia. 1:1000 pf epi wash, 20 mcg pf sufenta, 30 mcg pf fentanyl, 0.4 ml pf ns and 6 mg of 0.75 % pf bupivacaine injected after CSF aspiration. Pt to L lateral position. p rocedure time 0830 to 0900
[2019-08-17] MEDS ORDERED: Simethicone 80 MG Tab.Chew PO PRN (11:01)
[2019-08-17] MEDS ORDERED: Benzocaine/Menthol 20%-0.5% Spray 56 GM Canister TOP PRN (11:01)
[2019-08-17] MEDS: Ibuprofen 800 MG Tab PO PRN ×2 (13:32→23:22)
[2019-08-17] MEDS ORDERED: fentaNYL 100 MCG/2 ML SDV ITHECAL ONE (14:30)
[2019-08-17] MEDS ORDERED: Sodium Chloride 0.9% 20 ML SDV ONE (14:30)
--- NOTE | 2019-08-17 23:10 | DEL ---
DATE: 08/17/2019 PREPROCEDURE DIAGNOSES: 1. 39-1/7 weeks' intrauterine based on last menstrual period. 2. 2, para 1-0-0-1. 3. Anxiety with panic. 4. Gestational diabetes requiring minimal to no doses of NovoLog insulin. 5. Nausea and vomiting of . POSTPROCEDURE DIAGNOSES: 1. 39-1/7 weeks' intrauterine based on last menstrual period. 2. 2, para 2-0-0-2, status post spontaneous vaginal delivery. Brisk bleeding controlled with bimanual massage. 3. Anxiety with panic. 4. Gestational diabetes requiring minimal to no doses of NovoLog insulin. 5. Nausea and vomiting of . 6. Delivery viable male infant. 7. Bimanual massage for brisk uterine bleeding. BRIEF HISTORY: A 24-year-old with the above-listed diagnoses presented to the hospital for planned induction of labor at term due to her insulin-controlled diabetes. The patient was induced with Pitocin and once the head was well engaged and we had regular contractions, artificial rupture of membranes performed at 4+ cm dilated, followed by intrathecal for pain management, and then spontaneous vaginal delivery with details as below. The patient's labor was uneventful. She had a category 1 tracing the entire time while in Labor and pain was well managed. She essentially was having some panic and anxiety at the time of delivery, but was able to be controlled with reassurance and talking with her care providers. DETAILS OF PROCEDURE: With the patient in dorsal lithotomy position, she delivered a viable male infant in the OA position over intact perineum with delivery of the head, nuchal cord was noted which was reduced bluntly. Remainder of the delivered easily thereafter. was dried, stimulated, and mouth was suctioned. After a delay, 3-vessel umbilical cord was doubly clamped and cut. Baby was taken over to the warmer for further evaluation per mother's request as well as needing a little additional stimulation and support to induce a more vigorous cry. Cord blood sample was then obtained and placenta delivered by gentle cord traction and concomitant uterine massage. Labia inspected and there were bilateral lacerations not requiring repair, they were hemostatic. Posteriorly, no tears noted. There was some blood clots and brisk bleeding noted. These were expressed with fundal massage. However, she continued to bleed. Therefore, bimanual massage was performed, which controlled the bleeding quite well along with running the Pitocin at standard dosing. The vagina and cervix were inspected and no additional lacerations or tears noted. The patient tolerated the procedure well. COMPLICATIONS: None. ESTIMATED BLOOD LOSS: 400 mL. DISPOSITION: Mother and baby to stay in the room at this time to initiate skin to skin and . [facility] /[id number] [facility] [place]
[2019-08-17] MEDS: Docusate Sodium 100 MG Cap PO PRN (23:22)
[2019-08-18] MEDS ORDERED: Ferrous Sulfate 325 MG Tab PO SCH (08:00)
--- NOTE | 2019-08-18 08:29 | PCM.PNPP ---
- General Info Date of Service: 08/18/19 (PPD#1 S/P ) Functional Status: Reports: Pain Controlled, Tolerating Diet, Ambulating, Urinating - Review of Systems General: Reports: No Symptoms HEENT: Reports: No Symptoms Pulmonary: Reports: No Symptoms Cardiovascular: Reports: No Symptoms Gastrointestinal: Reports: No Symptoms Genitourinary: Reports: No Symptoms Musculoskeletal: Reports: No Symptoms Skin: Reports: No Symptoms Neurological: Reports: No Symptoms Psychiatric: Reports: No Symptoms - General Info Date of Service: 08/18/19 (PPS# 1 S/P ) - Patient Data Vital Signs - Most Recent: Last Vital Signs Temp 97.8 F 08/17/19 20:00 Pulse 71 08/17/19 20:00 Resp 14 08/17/19 20:00 BP 122/59 L 08/17/19 20:00 Pulse Ox 100 08/17/19 20:00 Weight - Most Recent: 259 lb Lab Results - Last 24 Hours: Laboratory Results - last 24 hr 08/17/19 08/17/19 08/18/19 Range/Units 10:52 13:05 05:25 WBC 12.0 H (5.0-10.0) 10^3/uL RBC 3.81 L (4.2-5.4) 10^6/uL Hgb 10.9 L (12.0-16.0) g/dL Hct 33.0 L (37.0-47.0) % MCV 86.6 (80-100) fL MCH 28.6 (27.0-34.0) pg MCHC 33.0 (33.0-35.0) g/dL Plt Count 237 (150-450) 10^3/uL POC Glucose 100 81 (70-105) mg/dl Med Orders - Current: Current Medications Acetaminophen (Tylenol) 650 mg PO Q4H PRN PRN Reason: Pain (Mild 1-3) and fever Benzocaine/Menthol (Dermoplast Pain Relief [place]) 0 gm TOP Q4H PRN PRN Reason: Perineal comfort measures Docusate Sodium (Colace) 100 mg PO BID PRN PRN Reason: Constipation Last Admin: 08/17/19 23:22 Dose: 100 mg Documented by: Ferrous Sulfate (Ferrous Sulfate) 325 mg PO WITHBREAKFAST MAURISIO Oxytocin/Sodium Chloride (Pitocin In Ns 30 Unit/500 Ml) 30 unit in 500 mls @ 2 mls/hr IV TITRATE MAURISIO; Protocol Last Titration: 08/17/19 12:15 Dose: 0 munits/min, 0 mls/hr Documented by: Tranexamic Acid 1,000 mg/ (Sodium Chloride) 110 mls @ 660 mls/hr IV ONETIME PRN PRN Reason: Bleeding Ibuprofen (Motrin) 800 mg PO Q8H PRN PRN Reason: Mild Pain or Fever Last Admin: 08/17/19 23:22 Dose: 800 mg Documented by: Methylergonovine Maleate (Methergine) 0.2 mg IM ASDIRECTED PRN PRN Reason: Hemorrhage Misoprostol (Cytotec) 800 mcg RECTAL ASDIRECTED PRN PRN Reason: Hemorrhage Ondansetron HCl (Zofran) 4 mg IVPUSH Q4H PRN PRN Reason: Nausea/Vomiting Last Admin: 08/17/19 13:31 Dose: 4 mg Documented by: Prenat Multivit/[employer]ans/Iron/Folic Ac ( Plus Iron) 1 each PO DAILY MAURISIO Simethicone (Simethicone) 80 mg PO Q4H PRN PRN Reason: Gas Sodium Chloride (Saline Flush) 10 ml FLUSH ASDIRECTED PRN PRN Reason: Keep Vein Open Witch [place] (Medi-Pads) 1 each TOP Q4HR PRN PRN Reason: Perineal Comfort Measure Discontinued Medications Acetaminophen (Tylenol) 650 mg PO Q4H PRN PRN Reason: Pain (Mild 1-3) and fever Acetaminophen (Tylenol) 650 mg PO Q4H PRN PRN Reason: Pain/Fever Carboprost Tromethamine (Hemabate Ds) 250 mcg IM ASDIRECTED PRN PRN Reason: HEMORRHAGE Carboprost Tromethamine (Hemabate Ds) 250 mcg IM ASDIRECTED PRN PRN Reason: HEMORRHAGE Epinephrine HCl (Adrenalin) Confirm Administered Dose 1 mg .ROUTE .STK-MED ONE Stop: 08/17/19 08:34 Last Admin: 08/17/19 12:48 Dose: Not Given Documented by: Epinephrine HCl (Adrenalin) 0.1 mg .XX .STK-MED ONE Stop: 08/17/19 14:31 Fentanyl (Sublimaze) 100 mcg IVPUSH Q1H PRN PRN Reason: Pain (moderate 4-6) Fentanyl (Sublimaze) 100 mcg IVPUSH Q1H PRN PRN Reason: Pain (moderate 4-6) Fentanyl (Sublimaze) Confirm Administered Dose 100 mcg .ROUTE .STK-MED ONE Stop: 08/17/19 08:34 Last Admin: 08/17/19 12:48 Dose: Not Given Documented by: Fentanyl (Sublimaze) 30 mcg ITHECAL .STK-MED ONE Stop: 08/17/19 14:31 Tranexamic Acid 1,000 mg/ (Sodium Chloride) 110 mls @ 660 mls/hr IV ONETIME PRN PRN Reason: Bleeding Oxytocin/Sodium Chloride (Pitocin In Ns 30 Unit/500 Ml) 30 unit in 500 mls @ 2 mls/hr IV TITRATE MAURISIO; Protocol Oxytocin/Sodium Chloride (Oxytocin 30 Unit/500 Ml-Ns) 30 unit in 500 mls @ 2 mls/hr IV TITRATE MAURISIO; Protocol Lactated Ringer's (Ringers, Lactated) 1,000 mls @ 999 mls/hr IV BOLUS ONE Stop: 08/17/19 09:00 Lactated Ringer's (Ringers, Lactated) 1,000 mls @ 125 mls/hr IV ASDIRECTED MAURISIO Last Admin: 08/17/19 09:00 Dose: 125 mls/hr Documented by: Lactated Ringer's (Ringers, Lactated) 1,000 mls @ 999 mls/hr IV BOLUS ONE Stop: 08/17/19 01:00 Last Admin: 08/17/19 08:27 Dose: 999 mls/hr Documented by: Lactated Ringer's (Ringers, Lactated) 1,000 mls @ 125 mls/hr IV ASDIRECTED MAURISIO Last Admin: 08/17/19 01:59 Dose: 125 mls/hr Documented by: Oxytocin/Sodium Chloride (Oxytocin 30 Unit/500 Ml-Ns) 30 unit in 500 mls @ 2 mls/hr IV TITRATE MAURISIO; Protocol Lidocaine HCl (Xylocaine-Mpf 1%) 30 ml INJECT ASDIRECTED PRN PRN Reason: Perineal Repair Lidocaine HCl (Xylocaine-Mpf 1%) 30 ml INJECT ASDIRECTED PRN PRN Reason: Perineal Repair Methylergonovine Maleate (Methergine) 0.2 mg IM ASDIRECTED PRN PRN Reason: Hemorrhage Misoprostol (Cytotec) 800 mcg RECTAL ASDIRECTED PRN PRN Reason: Hemorrhage Ondansetron HCl (Zofran) 4 mg IVPUSH Q4H PRN PRN Reason: Nausea/Vomiting Sodium Bicarbonate (Sodium Bicarbonate 4.2%) Confirm Administered Dose 2.5 meq .ROUTE .STK-MED ONE Stop: 08/17/19 08:34 Last Admin: 08/17/19 12:48 Dose: Not Given Documented by: Sodium Bicarbonate (Sodium Bicarbonate 4.2%) 0.5 meq .XX .STK-MED ONE Stop: 08/17/19 14:31 Sodium Chloride (Saline Flush) 10 ml FLUSH ASDIRECTED PRN PRN Reason: Keep Vein Open Sodium Chloride (Saline Flush) 10 ml FLUSH ASDIRECTED PRN PRN Reason: Keep Vein Open Sodium Chloride (Normal Saline) 0.4 ml .XX .STK-MED ONE Stop: 08/17/19 14:31 Sufentanil Citrate (Sufenta) Confirm Administered Dose 50 mcg .ROUTE .STK-MED ONE Stop: 08/17/19 08:34 Last Admin: 08/17/19 12:49 Dose: Not Given Documented by: Sufentanil Citrate (Sufenta) 20 mcg ITHECAL .STK-MED ONE Stop: 08/17/19 14:31 - Interaction Infant Disposition, : Otho in Room with Family Interaction: Holding Infant Feeding: Breastfed ; Nursed Well Support Person: Mother - Recovery Exam Fundal Tone: Firm Fundal Level: At Umbilicus Fundal Placement: Midline Lochia Amount: Small Lochia Color: Rubra/Red Perineum Description: Intact, Minimal Bruising/Swelling Episiotomy/Laceration: None Bladder Status: Voiding - Exam General: Alert, Oriented, Cooperative, No Acute Distress HEENT: Pupils Equal, Pupils Reactive, EOMI, Mucous Membr. Moist/[place] Neck: Supple, No Thyromegaly Lungs: Clear to Auscultation, Normal Respiratory Effort Cardiovascular: Regular Rate, Regular Rhythm, No Murmurs GI/Abdominal Exam: Normal Bowel Sounds, Soft, Non-Tender, No Organomegaly, No Distention Extremities: Normal Inspection, Normal Range of Motion, Non-Tender, No Pedal Edema, Normal Capillary Refill Skin: Warm, Dry, Intact Neurological: No New Focal Deficit, Normal Gait, Normal Speech, Normal Tone, Strength Equal Bilateral Psy/Mental Status: Alert, Normal Affect, Normal Mood - Problem List Review Problem List Initiated/Reviewed/Updated: No - My Orders Last 24 Hours: My Active Orders 08/18/19 08:10 Ready for Discharge [RC] PER UNIT ROUTINE - Assessment Assessment:: PPD #1 S/P Doing well - Plan Plan:: Discharge to home Follow-up with for follow-up. Ibuprofen/Tylenol for pain
[2019-08-18] MEDS: Docusate Sodium 100 MG Cap PO PRN (08:54)
[2019-08-18] MEDS: Ibuprofen 800 MG Tab PO PRN (08:55)
[2019-08-18] MEDS ORDERED: Prenatal Multivitamin with Calcium/Folic Acid/Iron Tab PO SCH (09:00)
--- NOTE | 2019-08-18 11:24 | DISCH ---
INDICATION FOR ADMISSION: Is a 24-year-old 2, para 1-0-0-1 female who reported to Labor and Delivery at 39-1/7 weeks' gestation for induction of labor at 39-1/7 weeks' gestation. She had gestational diabetes requiring very low to minimal doses of NovoLog insulin. She also has history of nausea and vomiting of . After admission, she was started on Pitocin IV. Once the head was well engaged with regular contractions, when she was 4.5 cm dilated, artificial rupture of membranes occurred. She then had intrathecal anesthesia for pain. She tolerated her labor quite well and was comfortable with the intrathecal. When she got to complete, she started pushing. She then had a viable male infant, OA, over an intact perineum. The cord was 3-vessel and was around the neck x1. Cord was clamped and cut. The was handed off to the nurse in attendance. No other complications occurred. She recovered for a couple of hours and tolerated the rest of her hospital stay quite well. She was afebrile. Vital signs were stable. She tolerated her diet well and ambulated quite well. She had minimal lochia. She is the baby quite well and was desiring to go home on day #1. She had delivery of a viable male infant, weighing 8 pounds 12 ounces, 21-1/4 inches long with score of 8 at one minute, 9 at five minutes. LABORATORY AND DIAGNOSTIC STUDIES: 08/17/2019: WBC 9.4, hemoglobin 11.0, hematocrit 33, platelet count 256,000. COVID-19 test was negative. Glucose was between 81 and 100 throughout her hospital stay. 08/18/2027: WBC 12.0, hemoglobin 10.9, hematocrit 33.0, and platelet count 237,000. DISCHARGE INSTRUCTIONS: 1. Discharge to home. 2. Follow up with Dr. Sumner in the next 2 weeks for followup with the baby. 3. No douching, tampons, or intercourse for 6 weeks. 4. Discharge instructions including activity, followup, medications, diet were discussed with the patient. She understands these and is willing to comply with these. 5. Ibuprofen 800 mg 1 tablet t.i.d. p.r.n. for pain. 6. vitamin and iron daily. DISCHARGE DIAGNOSES: 1. A 39-1/7-week intrauterine . 2. Gestational diabetes requiring small amounts of NovoLog insulin. 3. Nausea and vomiting of . 4. Anxiety with panic disorder. 5. Pitocin induction. 6. Artificial rupture of membrane. 7. Normal spontaneous vaginal delivery of a viable male weighing 8 pounds 12 ounces. Length was 21-1/4 inches long with score of 8 at one minute, 9 at five minutes. 8. Chronic anemia of . 9. Intrathecal anesthesia. [facility] /[id number]
== END 2019-08-18 14:30 | disposition home or self-care (01) | DRG 560 ==
LOC: DL.OBCHECK 00:14 → DL.OB 00:17 → OBSVTOIN 10:34 → DL.OB 10:34
PROVIDERS: ADMIT Family Medicine; ATTEND Family Medicine
PROC: 10E0XZZ Delivery of Products of Conception, External Approach (ICD-10-PCS; principal; 2019-08-17)
PROC: 3E0R3BZ Introduction of Anesthetic Agent into Spinal Canal, Percutaneous Approach (ICD-10-PCS; 2019-08-17)
PROC: 00HU33Z Insertion of Infusion Device into Spinal Canal, Percutaneous Approach (ICD-10-PCS; 2019-08-17)
PROC: 10907ZC Drainage of Amniotic Fluid, Therapeutic from Products of Conception, Via Natural or Artificial Opening (ICD-10-PCS; 2019-08-17)
PROC: 3E033VJ Introduction of Other Hormone into Peripheral Vein, Percutaneous Approach (ICD-10-PCS; 2019-08-17)
DX: O24.424 Gestational diabetes mellitus in childbirth, insulin controlled (principal); Z3A.39 39 weeks gestation of pregnancy; Z37.0 Single live birth; O99.344 Other mental disorders complicating childbirth; F41.0 Panic disorder [episodic paroxysmal anxiety]; Z11.59 Encounter for screening for other viral diseases; O99.02 Anemia complicating childbirth; D64.9 Anemia, unspecified; Z28.82 Immunization not carried out because of caregiver refusal
CPT/HCPCS: 36415; 59409; 82962; 85027; A9270-GY; J0171; J2405; J2590; J3010; J7120; U0002

== ENCOUNTER 2019-10-16 08:08 | Emergency (ER) | payer BC ==
[2019-10-16] MEDS ORDERED: Sodium Chloride 0.9% 10 ML Syringe FLUSH PRN (08:20)
--- NOTE | 2019-10-16 08:20 | EDM.PDOC ---
ED HPI GENERAL MEDICAL PROBLEM - General Chief Complaint: Chest Pain Stated Complaint: CHEST PAIN Time Seen by Provider: 10/16/19 08:19 Source of Information: Reports: Patient, Old Records, RN, RN Notes Reviewed History Limitations: Reports: No Limitations - History of Present Illness INITIAL COMMENTS - FREE TEXT/NARRATIVE: 24 y.o female presents to ER by POV with c/o fairly sudden onset of chest pain that began at 0700HRS. Pt describes the pain as sharp and tight. Pain radiates to middle upper back area. 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 Denies cough, fever, chills, edema, or COVID exposure. Pt had recent delivery that was normal and reports gestational diabetes. Onset: Today, Sudden Duration: Constant, Waxing/Waning Location: Reports: Chest Quality: Reports: Ache, Pressure (Squeezing) Severity: Severe Improves with: Reports: None Worsens with: Reports: None Associated Symptoms: Reports: No Other Symptoms Treatments HOUSE SHORER: Reports: Aspirin Upper Chest Pain Score (Numeric/FACES): 7 - Related Data Allergies Allergy/AdvReac Type Severity Reaction Status Date / Time No Known Allergies Allergy Verified 10/16/19 08:17 Home Meds: Home Meds No122/Iron/Folic Acid [ Multi Tablet] 1 tab PO DAILY 03/03/17 [History] Promethazine HCl 25 mg PO BID PRN 07/06/19 [History] Past Medical History - Past Health History Medical/Surgical History: Denies Medical/Surgical History HEENT History: Reports: None Cardiovascular History: Reports: None Respiratory History: Reports: None Gastrointestinal History: Reports: None Genitourinary History: Reports: None BOOK TRIMMER History: Reports: Polycystic Ovaries, Other BOOK TRIMMER History: lost 20lbs; regained only 10lb Musculoskeletal History: Reports: None Neurological History: Reports: None Psychiatric History: Reports: Anxiety Endocrine/Metabolic History: Reports: None Hematologic History: Reports: Anemia Immunologic History: Reports: None Oncologic (Cancer) History: Reports: None Dermatologic History: Reports: None Other Dermatologic History: states breaks out in hives per uticaria if takes steroids PO - Infectious Disease History Infectious Disease History: Reports: Other (See Below) Other Infectious Disease History: STD - Past Surgical History Head Surgeries/Procedures: Reports: None HEENT Surgical History: Reports: Other (See Below) Other HEENT Surgeries/Procedures: wisdom teeth Female Surgical History: Reports: None Social & Family History - Family History Family Medical History: Noncontributory - Caffeine Use Caffeine Use: Reports: None - Living Situation & Occupation Living situation: Reports: with Family ED ROS GENERAL - Review of Systems Review Of Systems: Comprehensive ROS is negative, except as noted in HPI. ED EXAM, GENERAL - Physical Exam Exam: See Below Exam Limited By: No Limitations General Appearance: Alert, WD/WN, No Apparent Distress, Anxious Eye Exam: Bilateral Eye: Normal Inspection (No scleral icterus) Nose: Normal Inspection, Normal Mucosa, No Blood Throat/Mouth: Normal Inspection, Normal Lips, Normal Teeth, Normal Gums, Normal Oropharynx, Normal Voice, No Airway Compromise Head: Atraumatic, Normocephalic Neck: Normal Inspection, Supple, Non-Tender, Full Range of Motion Respiratory/Chest: No Respiratory Distress, Lungs Clear, Normal Breath Sounds, No Accessory Muscle Use, Other (Mild tenderness to firm palpation pressure on sterum) Cardiovascular: Normal Peripheral Pulses, Regular Rate, Rhythm, No Edema, No Gallop, No JVD, No Murmur, No Rub GI/Abdominal: Normal Bowel Sounds, Soft, Non-Tender, No Organomegaly, No Distention, No Abnormal Bruit, No Mass Back Exam: Normal Inspection, Full Range of Motion. No: CVA Tenderness (L), CVA Tenderness (R), Vertebral Tenderness Extremities: Normal Inspection, Normal Range of Motion, Non-Tender, Normal Capillary Refill, No Pedal Edema Neurological: Alert, Oriented, CN II-XII Intact, Normal Cognition, Normal Gait, No Motor/Sensory Deficits Psychiatric: Normal Affect, Anxious Skin Exam: Warm, Dry, Intact, Normal Color, No Rash EKG INTERPRETATION EKG Date: 10/16/19 Time: 08:12 Rhythm: NSR Rate (Beats/Min): 68 [place]: Normal P-Wave: Present QRS: Normal ST-T: Normal QT: Normal Comparison: NA - No Prior EKG Course - Vital Signs Last Recorded V/S: Last Vital Signs Temp 97.1 F 10/16/19 08:15 Pulse 83 10/16/19 08:15 Resp 20 10/16/19 08:15 BP 120/57 L 10/16/19 08:15 Pulse Ox 99 10/16/19 08:15 - Orders/Labs/Meds Orders: Active Orders 24 hr Category Date Time Status EKG 12 Lead [EKG Documentation Completion] [RC] STAT Care 10/16/19 08:09 Active Peripheral IV Care [RC] . DIRECTED Care 10/16/19 08:20 Active CULTURE URINE [RM] Stat Lab 10/16/19 09:14 Received Sodium Chloride 0.9% [Saline Flush] Med 10/16/19 08:20 Active 10 ml FLUSH ASDIRECTED PRN Peripheral IV Insertion Adult [OM.PC] Stat Oth 10/16/19 08:20 Ordered Medication Orders Sodium Chloride (Saline Flush) 10 ml FLUSH ASDIRECTED PRN PRN Reason: Keep Vein Open Last Admin: 10/16/19 08:48 Dose: 10 ml Documented by: ISAURO Labs: Laboratory Tests 10/16/19 10/16/19 10/16/19 Range/Units 08:34 08:34 08:34 WBC 7.7 (5.0-10.0) 10^3/uL RBC 4.79 (4.2-5.4) 10^6/uL Hgb 13.6 D (12.0-16.0) g/dL Hct 41.8 (37.0-47.0) % MCV 87.3 (80-100) fL MCH 28.4 (27.0-34.0) pg MCHC 32.5 L (33.0-35.0) g/dL Plt Count 307 (150-450) 10^3/uL Neut % (Auto) 58.8 (42.2-75.2) % Lymph % (Auto) 30.4 (20.5-50.1) % [place] % (Auto) 7.1 (2-8) % Eos % (Auto) 2.7 (1.0-3.0) % Baso % (Auto) 1.0 (0.0-1.0) % D-Dimer, Quantitative 126 (0-400) ng/mL Sodium 142 (136-145) mmol/L Potassium 3.8 (3.5-5.1) mmol/L Chloride 106 (98-107) mmol/L Carbon Dioxide 25 (21-32) mmol/L Anion Gap 14.8 H (7-13) mEq/L BUN 13 (7-18) mg/dL Creatinine 0.88 (0.55-1.02) mg/dL Est Cr Clr Drug Dosing 101.24 mL/min Estimated GFR (MDRD) > 60 BUN/Creatinine Ratio 14.8 (No establ ref range) Glucose 85 (74-99) mg/dL Calcium 9.4 (8.5-10.1) mg/dL Total Bilirubin 0.3 (0.2-1.0) mg/dL AST 41 H (15-37) U/L ALT 74 H (14-59) U/L Alkaline Phosphatase 98 (46-116) U/L Troponin I < 0.017 (0.000-0.056) ng/mL Total Protein 7.2 (6.4-8.2) g/dL Albumin 3.4 (3.4-5.0) g/dL Globulin 3.8 Albumin/Globulin Ratio 0.9 Amylase 61 (25-115) U/L Lipase 99 (73-393) U/L Urine Color (YELLOW) Urine Appearance (CLEAR) Urine pH (5.0-9.0) Ur Specific [place] (1.005-1.030) Urine Protein (NEGATIVE) Urine Glucose (UA) (NEGATIVE) Urine Ketones (NEGATIVE) Urine Occult Blood (NEGATIVE) Urine Nitrite (NEGATIVE) Urine Bilirubin (NEGATIVE) Urine Urobilinogen (0.2-1.0) mg/dL Ur Leukocyte Esterase (NEGATIVE) Urine RBC /HPF Urine WBC (0-5/HPF) /HPF Ur Epithelial Cells (NOT SEEN) /HPF Amorphous Sediment (NOT SEEN) /HPF Urine Bacteria (0-FEW/HPF) /HPF Urine Mucus (NOT SEEN) /LPF Urine HCG, Qual COVID-19 ([place]) (NEGATIVE) 10/16/19 10/16/19 10/16/19 Range/Units 09:14 09:14 10:30 WBC (5.0-10.0) 10^3/uL RBC (4.2-5.4) 10^6/uL Hgb (12.0-16.0) g/dL Hct (37.0-47.0) % MCV (80-100) fL MCH (27.0-34.0) pg MCHC (33.0-35.0) g/dL Plt Count (150-450) 10^3/uL Neut % (Auto) (42.2-75.2) % Lymph % (Auto) (20.5-50.1) % [place] % (Auto) (2-8) % Eos % (Auto) (1.0-3.0) % Baso % (Auto) (0.0-1.0) % D-Dimer, Quantitative (0-400) ng/mL Sodium (136-145) mmol/L Potassium (3.5-5.1) mmol/L Chloride (98-107) mmol/L Carbon Dioxide (21-32) mmol/L Anion Gap (7-13) mEq/L BUN (7-18) mg/dL Creatinine (0.55-1.02) mg/dL Est Cr Clr Drug Dosing mL/min Estimated GFR (MDRD) BUN/Creatinine Ratio (No establ ref range) Glucose (74-99) mg/dL Calcium (8.5-10.1) mg/dL Total Bilirubin (0.2-1.0) mg/dL AST (15-37) U/L ALT (14-59) U/L Alkaline Phosphatase (46-116) U/L Troponin I (0.000-0.056) ng/mL Total Protein (6.4-8.2) g/dL Albumin (3.4-5.0) g/dL Globulin Albumin/Globulin Ratio Amylase (25-115) U/L Lipase (73-393) U/L Urine Color Yellow (YELLOW) Urine Appearance Clear (CLEAR) Urine pH 6.0 (5.0-9.0) Ur Specific [place] 1.020 (1.005-1.030) Urine Protein Negative (NEGATIVE) Urine Glucose (UA) Negative (NEGATIVE) Urine Ketones Negative (NEGATIVE) Urine Occult Blood Trace-intact H (NEGATIVE) Urine Nitrite Negative (NEGATIVE) Urine Bilirubin Negative (NEGATIVE) Urine Urobilinogen 0.2 (0.2-1.0) mg/dL Ur Leukocyte Esterase Trace H (NEGATIVE) Urine RBC 0-5 /HPF Urine WBC 5-10 H (0-5/HPF) /HPF Ur Epithelial Cells Moderate H (NOT SEEN) /HPF Amorphous Sediment Rare (NOT SEEN) /HPF Urine Bacteria Occasional (0-FEW/HPF) /HPF Urine Mucus Occasional (NOT SEEN) /LPF Urine HCG, Qual Negative COVID-19 ([place]) Negative (NEGATIVE) Meds: Medications Generic Name Dose Route Start Last Admin Trade Name Freq PRN Reason Stop Dose Admin Sodium Chloride 10 ml 10/16/19 08:20 10/16/19 08:48 Saline Flush FLUSH 10 ml ASDIRECTED PRN Administration Keep Vein Open Discontinued Medications Generic Name Dose Route Start Last Admin Trade Name Ervinq PRN Reason Stop Dose Admin Al Hydroxide/Mg Hydroxide 30 ml 10/16/19 08:25 10/16/19 08:36 Gi Cocktail PO 10/16/19 08:26 30 ml ONETIME ONE Administration Hydromorphone HCl 1 mg 10/16/19 08:25 10/16/19 08:48 Dilaudid IVPUSH 10/16/19 08:26 1 mg ONETIME ONE Administration Sodium Chloride 1,000 mls @ 999 mls/hr 10/16/19 09:12 10/16/19 09:17 Normal Saline IV 10/16/19 10:12 999 mls/hr .BOLUS ONE Administration Ondansetron HCl 4 mg 10/16/19 08:26 10/16/19 08:49 Zofran IV 10/16/19 08:27 4 mg ONETIME ONE Administration Ondansetron HCl 4 mg 10/16/19 09:12 10/16/19 09:17 Zofran IV 10/16/19 09:13 4 mg ONETIME ONE Administration - Radiology Interpretation Free Text/Narrative:: [facility] Final Radiology Report Call: [phone] assistance Online chat: [email or web address] Name: TATE LEW Age: 24Years F Date: 10/16/2019 SSN: -- : [id number] Study: CR CHEST 2V Requesting Physician: ARTUR GOMEZ Images: 2 Addl Studies: Provided Clinical History: Chest pain Contrast: Contrast Medium: Contrast Amount: Contrast Method: CONFIDENTIALITY STATEMENT This report is intended only for use by the referring physician, and only in accordance with law. If you received this in error, call [phone]. Page 1 of 1 PROCEDURE INFORMATION: Exam: XR Chest, 2 Views Exam date and time: 10/16/2019 9:43 AM Age: 24 years old Clinical indication: Chest pain TECHNIQUE: Imaging protocol: XR of the chest Views: 2 views. COMPARISON: No relevant prior studies available. FINDINGS: Lungs: Faint focal right lower lobe lung opacification, largely ground-glass density. The lungs are otherwise clear. Pleural space: Normal. Heart/Mediastinum: Normal heart and cardiomediastinal silhouette. Vasculature: Normal pulmonary vessel caliber. Normal aorta. Bones/joints: The bones are intact. IMPRESSION: Faint right lower lobe lung opacification suspicious for pneumonia. Thank you for allowing us to participate in the care of your patient. Dictated and Authenticated by: Ash Mora MD 10/16/2019 10:04 AM Central Time ([place] & [place]) Departure - Departure Time of Disposition: 11:15 Disposition: Home, Self-Care 01 Condition: Good Clinical Impression: Pleuritic chest pain, Pneumonitis Instructions: Pleurodynia Forms: ED Department Discharge Additional Instructions: Rx: Dexamethasone 4mg Follow up in clinic in 3 days if not improved. Sepsis Event Note (ED) - Evaluation Sepsis Screening Result: No Definite Risk - Focused Exam Vital Signs: Vital Signs Temp Pulse Resp BP Pulse Ox 10/16/19 08:15 97.1 F 83 20 120/57 L 99 - My Orders Last 24 Hours: My Active Orders 10/16/19 08:09 EKG 12 Lead [EKG Documentation Completion] [RC] STAT 10/16/19 08:20 Peripheral IV Care [RC] . DIRECTED Sodium Chloride 0.9% [Saline Flush] 10 ml FLUSH ASDIRECTED PRN Peripheral IV Insertion Adult [OM.PC] Stat 10/16/19 09:14 CULTURE URINE [RM] Stat - Assessment/Plan Last 24 Hours: My Active Orders 10/16/19 08:09 EKG 12 Lead [EKG Documentation Completion] [RC] STAT 10/16/19 08:20 Peripheral IV Care [RC] . DIRECTED Sodium Chloride 0.9% [Saline Flush] 10 ml FLUSH ASDIRECTED PRN Peripheral IV Insertion Adult [OM.PC] Stat 10/16/19 09:14 CULTURE URINE [RM] Stat
[2019-10-16] MEDS ORDERED: GI Cocktail Oral Solution 30 ML PO ONE (08:25)
[2019-10-16] MEDS ORDERED: HYDROmorphone 1 MG/ML Syringe IVPUSH ONE (08:25)
[2019-10-16] MEDS ORDERED: Ondansetron 4 MG/2 ML SDV IV ONE ×2 (08:26→09:12)
[2019-10-16 09:11] LABS: ANION GAP 14.8 mEq/L (7-13); CHLORIDE,CL 106 mmol/L (98-107); SODIUM,NA 142 mmol/L (136-145)
[2019-10-16] MEDS ORDERED: Sodium Chloride 0.9% 1,000 ML IV ONE (09:12)
--- NOTE | 2019-10-16 10:05 | CR ---
PROCEDURE INFORMATION: Exam: XR Chest, 2 Views Exam date and time: 10/16/2019 9:43 AM Age: 24 years old Clinical indication: Chest pain TECHNIQUE: Imaging protocol: XR of the chest Views: 2 views. COMPARISON: No relevant prior studies available. FINDINGS: Lungs: Faint focal right lower lobe lung opacification, largely ground-glass density. The lungs are otherwise clear. Pleural space: Normal. Heart/Mediastinum: Normal heart and cardiomediastinal silhouette. Vasculature: Normal pulmonary vessel caliber. Normal aorta. Bones/joints: The bones are intact. IMPRESSION: Faint right lower lobe lung opacification suspicious for pneumonia.
== END 2019-10-16 11:21 | disposition home or self-care (01) ==
LOC: DL.ED 08:08
DX: J18.9 Pneumonia, unspecified organism (principal); Z20.828 Contact with and (suspected) exposure to other viral communicable diseases
CPT/HCPCS: 36415; 71046; 80053; 81001; 81025; 82150; 83690; 84484; 85025; 85379; 87086; 87635; 93005; 96361; 96374; 96375; 99285; A9270; J1170; J2405; J7030; U0002

== ENCOUNTER 2019-11-22 05:53 | Day surgery (SDC) | payer BC ==
[2019-11-22] MEDS ORDERED: Midazolam 1 MG/ML 2 ML SDV IV ONE ×3 (05:54→06:55)
[2019-11-22] MEDS ORDERED: fentaNYL 100 MCG/2 ML SDV IV ONE ×3 (05:54→06:54)
[2019-11-22] MEDS ORDERED: fentaNYL 100 MCG/2 ML SDV ONE (06:19)
[2019-11-22] MEDS ORDERED: Midazolam 1 MG/ML 2 ML SDV ONE (06:19)
[2019-11-22] MEDS ORDERED: Dextrose 5%-0.45% NaCl 1,000 ML IV SCH (06:45)
--- NOTE | 2019-11-22 07:55 | OR ---
DATE: 11/22/2019 PROCEDURE: Esophagogastroduodenoscopy and multiple pinch biopsies. INSTRUMENT USED: [id number] Olympus video panendoscope. PREMEDICATIONS: No oral or topical anesthesia used. Fentanyl 100 mcg intravenous, Versed 2 mg intravenous. The procedure was done under pulse oximetry, BP recording, and teletray operator. INDICATION: The patient with persistent abdominal pain, unexplained and not responsive to medical measures. Esophagogastroduodenoscopy is performed for detection of any active erosive lesions, Maria esophagus and/or malignancy also under consideration, H pylori status to be determined, endoscopic hemostasis therapy if needed. PROCEDURE IN DETAIL: The scope was passed with ease. Adequate visualization of the esophagus was made from proximal to distal areas. No upper esophageal lesions identified. No distal esophageal stricture. No uphill or downhill esophageal varices. No Evonne-Skaggs tear. No evidence of erosive esophagitis by [place] criteria. No esophageal polyp or tumor mass identified. Z-line was seen at around 40 cm distal to the oral verge, configuration consistent with grade 1 by ZAP classification. No proximal gastric varices noted. Gastric fundus examination by retroflexion showed no polypoid lesions. No gastric ulcer, malignant mass, or vascular ectasia identified. Duodenal bulb showed no ulcer. Visualized second part of the duodenum was unremarkable. Multiple pinch biopsies were taken from the gastric antrum and proximal body and sent for PyloriTek test for H pylori, and if negative in an hour, the tissue is to be sent for histopathology. No bleeding was noted from any of the visualized areas at the completion of the examination. Photographs were taken of the duodenal bulb, gastric antrum, fundus, and distal esophagus. IMPRESSION: Normal study. The patient tolerated the procedure well. [facility] /[id number]
== END 2019-11-22 08:51 | disposition home or self-care (01) ==
LOC: DL.SDS 05:53
PROVIDERS: ATTEND Internal Medicine Gastroenterology
DX: R10.9 Unspecified abdominal pain (principal); E66.09 Other obesity due to excess calories; L50.1 Idiopathic urticaria; K08.409 Partial loss of teeth, unspecified cause, unspecified class; Z68.33 Body mass index [BMI] 33.0-33.9, adult
CPT/HCPCS: 43239; 81025; 87077; J2250; J3010; J7042